=== PATIENT | female | born 1950 | race Caucasian/White ===

== ENCOUNTER 2017-04-26 14:03 | Inpatient (IN) | payer MEDICARE, OTHER ==
[~2017-04-26] VITALS: Ht 160 cm; Wt 58.7 kg
[~2017-04-26 14:03] MED LIST: AMLO5TAB2 PO; ARIP15TA36 PO; ASPI325T11 PO; ATOR20TA58 PO; BUSP10TA PO; CARB1TAB22 PO; CARI350T PO; CLON2TAB2 PO; HYDR-2679 PO; LEVO100T5 PO; POTA20TA4 PO; RALO60TA PO; ROPI0.5T PO; SERT100T8 PO; TRAZ-90 PO
--- NOTE | 2017-04-26 14:06 | PHYS DOC ---
Past History Past Medical History: COPD, CVA, Depression, High Cholesterol, Hypertension, TIA Past Surgical History: Other Alcohol Use: None Drug Use: None Adult General HPI HPI Patient is a 66-year-old female presenting to the emergency department for evaluation of fall from generalized weakness. Patient has had a stroke with resultant slurred speech and left-sided weakness. Patient is somewhat slow to get information from but it sounds as if she fell from weakness and was not able to get up and was lying on the ground for at least 5 hours and she was yelling and screaming and the neighbor found her and family came and they were unable to get her up so they called the ambulance. Patient denies any specific pain rather she says she just feels weak and tired. She thinks that she has been eating enough but is vague on her answers. She is slightly confused as she thinks the year is 1916 but later corrected herself. She is moving all extremities and has no obvious signs of trauma. Review of Systems Review of Systems Constitutional: Denies fever or chills [] Eyes: Denies change in visual acuity, redness, or eye pain [] HENT: Denies nasal congestion or sore throat [] Respiratory: Denies cough or shortness of breath [] Cardiovascular: No additional information not addressed in HPI [] GI: Denies abdominal pain, nausea, vomiting, bloody stools or diarrhea [] : Denies dysuria or hematuria [] Musculoskeletal: Denies back pain or joint pain [] Integument: Denies rash or skin lesions [] Neurologic: Denies headache, focal weakness or sensory changes [] Allergies Allergies Allergies Coded Allergies Type Severity Reaction Last Updated Verified Tetanus Vaccines and Toxoid Allergy Intermediate 12/12/16 Yes meperidine Allergy Intermediate 12/12/16 Yes iodine Allergy Mild 12/12/16 Yes latex Allergy Mild 12/12/16 Yes Physical Exam Physical Exam Constitutional: Well developed, well nourished, no acute distress, non-toxic appearance. [] HENT: Normocephalic, atraumatic, bilateral external ears normal, oropharynx moist, no oral exudates, nose normal. [] Eyes: PERRLA, EOMI, conjunctiva normal, no discharge. [] Neck: Normal range of motion, no tenderness, supple, no stridor. [] Cardiovascular:Heart rate regular rhythm, no murmur [] Lungs & Thorax: Bilateral breath sounds clear to auscultation [] Abdomen: Bowel sounds normal, soft, no tenderness, no masses, no pulsatile masses. [] Skin: Warm, dry, no erythema, no rash. [] Back: No tenderness, no CVA tenderness. [] Extremities: No tenderness, no cyanosis, no clubbing, ROM intact, no edema. [] Neurologic: Alert and oriented X 2, moves all extremities EKG EKG [] Radiology/Procedures Radiology/Procedures CT of the head without contrast, 04/26/2017: History: Altered mental status Comparison is made to a study from 12/12/2016. There is moderate cerebral atrophy particularly in the anterior temporal lobe on the right. The ventricles are mildly enlarged on a compensatory basis. There is no shift of the midline structures. There is no evidence of acute intracranial hemorrhage or mass effect. There are sclerotic changes in the left mastoid sinus with opacification of the left mastoid air cells, compatible with chronic mastoiditis. Similar findings were present on 12/12/2016. IMPRESSION: No acute intracranial abnormality is detected with no significant change since 12/12/2016. PQRS Compliance Statement: One or more of the following individualized dose reduction techniques were utilized for this examination: 1. Automated exposure control 2. Adjustment of the mA and/or kV according to patient size 3. Use of iterative reconstruction technique DICTATED AND SIGNED BY: DAVID WHITLOCK MD DATE: 04/26/17 145 Portable chest, 04/26/2017: History: Altered mental status Comparison is made to a study from 09/27/2016. The heart size and pulmonary vascularity are normal. Previously seen right lung infiltrates have cleared. There is currently no significant pulmonary infiltrate. No pleural fluid is evident. IMPRESSION: No acute cardiopulmonary abnormality is detected. DICTATED AND SIGNED BY: DAVID WHITLOCK MD DATE: 04/26/17 1443 Course & Med Decision Making Course & Med Decision Making Patient with generalized weakness and could not ambulate on her own. Says that she lives by herself. Family including brother is concerned about safety and patient admits herself that she does not feel well enough to go home. Patient will be admitted for further observation and treatment. Dragon Disclaimer Dragon Disclaimer This chart was dictated in whole or in part using Voice Recognition software in a busy, high-work load, and often noisy Emergency Department environment. It may contain unintended and wholly unrecognized errors or omissions. Departure Departure: Impression: Primary Impression: Generalized weakness Additional Impression: Frequent falls Disposition: 09 ADMITTED INPATIENT Admitting Physician: Waqar Hall Condition: STABLE Referrals: EWA GOULD APRN (PCP) Problem Qualifiers YUSUF CARMONA DO Apr 26, 2017 14:06
[2017-04-26 14:27] LABS: BASO # 0.1 x10^3/uL (0.0-0.2); BASO % 1 % (0-3); EOS # 0.1 x10^3/uL (0.0-0.7); EOS % 1 % (0-3); HEMATOCRIT 35.8 % (36.0-47.0); HEMOGLOBIN 11.9 g/dL (12.0-15.5); LYMPH # 3.5 x10^3/uL (1.0-4.8); LYMPH % 32 % (24-48); MEAN CORPUSCULAR HEMOGLOBIN 30 pg (25-35); MEAN CORPUSCULAR HGB CONC 33 g/dL (31-37); MEAN CORPUSCULAR VOLUME 91 fL (79-100); MONO # 0.8 x10^3/uL (0.0-1.1); MONO % 7 % (0-9); NEUT # 6.3 x10^3uL (1.8-7.7); NEUT % 59 % (31-73); PLATELET COUNT 216 x10^3/uL (140-400); RED BLOOD COUNT 3.94 x10^6/uL (3.50-5.40); RED CELL DISTRIBUTION WIDTH 15.2 % (11.5-14.5); WHITE BLOOD COUNT 10.7 x10^3/uL (4.0-11.0)
[2017-04-26] MEDS ORDERED: IV NORMAL SALINE 1,000ML 1,000 ML IV ONE (14:30)
[2017-04-26 14:43] LABS: ALBUMIN 3.5 g/dL (3.4-5.0); ALBUMIN/GLOBULIN RATIO 1.2 (1.0-1.7); CALCIUM 8.6 mg/dL (8.5-10.1); CREATININE 1.3 mg/dL (0.6-1.0); GFR 41.1; TOTAL BILIRUBIN 0.2 mg/dL (0.2-1.0); TOTAL PROTEIN 6.4 g/dL (6.4-8.2)
[2017-04-26 14:45] LABS: ACETAMIN 10.5 mcg/mL (10-30); ETHANOL < 10 mg/dL (0-10); SALIC 5.8 mg/dL (2.8-20.0)
--- NOTE | 2017-04-26 14:46 | RAD ---
Portable chest, 04/26/2017: History: Altered mental status Comparison is made to a study from 09/27/2016. The heart size and pulmonary vascularity are normal. Previously seen right lung infiltrates have cleared. There is currently no significant pulmonary infiltrate. No pleural fluid is evident. IMPRESSION: No acute cardiopulmonary abnormality is detected.
--- NOTE | 2017-04-26 14:58 | RAD ---
CT of the head without contrast, 04/26/2017: History: Altered mental status Comparison is made to a study from 12/12/2016. There is moderate cerebral atrophy particularly in the anterior temporal lobe on the right. The ventricles are mildly enlarged on a compensatory basis. There is no shift of the midline structures. There is no evidence of acute intracranial hemorrhage or mass effect. There are sclerotic changes in the left mastoid sinus with opacification of the left mastoid air cells, compatible with chronic mastoiditis. Similar findings were present on 12/12/2016. IMPRESSION: No acute intracranial abnormality is detected with no significant change since 12/12/2016. PQRS Compliance Statement: One or more of the following individualized dose reduction techniques were utilized for this examination: 1. Automated exposure control 2. Adjustment of the mA and/or kV according to patient size 3. Use of iterative reconstruction technique
[2017-04-26] MEDS ORDERED: ONDANSETRON PF 4 MG/2 ML VIAL. IV PRN (15:15)
--- NOTE | 2017-04-26 15:26 | EKG ---
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
[2017-04-26 16:10] LABS: BILIRUBIN,URINE NEG (NEG); CLARITY,URINE CLEAR; COLOR,URINE YELLOW; GLUCOSE,URINE NEG (NEG); NITRITE,URINE NEG (NEG); UROBILINOGEN,URINE 0.2 mg/dL (0.2 mg/dL)
[2017-04-26 16:11] LABS: BACTERIA,URINE FEW /HPF (0-FEW); RBC,URINE OCC /HPF (0-2); SQUAMOUS EPITHELIAL CELL,UR FEW /LPF; WBC,URINE OCC /HPF (0-4)
[2017-04-26 16:22] LABS: AMPHETAMINE/METHAMPHETAMINE NEG (NEG); BARBITURATES POS (NEG); BENZODIAZEPINES POS (NEG); CANNABINOIDS NEG (NEG); COCAINE NEG (NEG); METHADONE NEG (NEG); OPIATES POS (NEG); PHENCYCLIDINE NEG (NEG)
[2017-04-26 17:05] VITALS: BP 138/68
[2017-04-26] MEDS ORDERED: HYDROcodone/APAP 7.5/325MG 1 TAB TABLET PO PRN (17:45)
[2017-04-26] MEDS ORDERED: clonazePAM 2 MG TABLET PO PRN (17:45)
--- NOTE | 2017-04-26 17:59 | PDOC1 ---
History of Present Illness Reason for Visit: Generalized weakness and fall to the floor History of Present Illness Fell on the floor and was lying there for 5 hours Was yelling and her neighbour heard her and called her family who called the ambulance as they were unable to get her up Chief Complaint: MECHANICAL FALL Allergies: Coded Allergies: Tetanus Vaccines and Toxoid (Verified Allergy, Intermediate, 12/12/16) meperidine (Verified Allergy, Intermediate, 12/12/16) iodine (Verified Allergy, Mild, 12/12/16) latex (Verified Allergy, Mild, 12/12/16) Past Medical History Cardiac: No pertinent hx Pulmonary: COPD 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 See HPI for pertinent positives and negative responses, other at[place] all other systems are negative, non pertinent or non contributory Neurological: YES: Weakness, Other (left sided hemiplegia) Allergies: Coded Allergies: Tetanus Vaccines and Toxoid (Verified Allergy, Intermediate, 12/12/16) meperidine (Verified Allergy, Intermediate, 12/12/16) iodine (Verified Allergy, Mild, 12/12/16) latex (Verified Allergy, Mild, 12/12/16) Medications Current Medications Sodium Chloride 1,000 ml @ 1,000 mls/hr 1X ONCE IV Last administered on t 14:38; Start 04/26/17 at 14:30; Stop 04/26/17 at 15:29; Status DC Ondansetron HCl (Zofran) 4 mg PRN Q4HRS PRN IV NAUSEA/VOMITING; Start 04/26/17 at 15:15; Stop 04/27/17 at 15:14 Amlodipine Besylate (Norvasc) 10 mg DAILY PO ; Start 04/27/17 at 09:00; Status UNV Aripiprazole (Abilify) 15 mg AFTRNOON PO ; Start 04/27/17 at 13:00; Status UNV Aspirin (Aspirin Enteric Coated) 325 mg DAILYWBKFT PO ; Start 04/27/17 at 08:00; Status UNV Atorvastatin Calcium (Lipitor) 20 mg QHS PO ; Start 04/26/17 at 21:00; Status UNV Buspirone HCl (Buspar) 10 mg QHS PO ; Start 04/26/17 at 21:00; Status UNV Carbidopa/Levodopa (Sinemet 25/100) 1 tab TID PO ; Start 04/26/17 at 21:00; Status UNV Clonazepam (KlonoPIN) 2 mg TID PRN PO ANXIETY; Start 04/26/17 at 17:45; Status UNV Acetaminophen/ Hydrocodone Bitart (Lortab 7.5/325) 1 tab PRN Q6HRS PRN PO PAIN ; Start 04/26/17 at 17:45; Status UNV Levothyroxine Sodium (Synthroid) 100 mcg DAILY07 PO ; Start 04/27/17 at 07:00; Status UNV Potassium Chloride (Klor-Con) 40 meq BIDWMEALS PO ; Start 04/27/17 at 08:00; Status UNV Raloxifene HCl (Evista) 60 mg DAILY PO ; Start 04/27/17 at 09:00; Status UNV Sertraline HCl (Zoloft) 200 mg DAILY PO ; Start 04/27/17 at 09:00; Status UNV Trazodone HCl (Desyrel) 300 mg QHS PO ; Start 04/26/17 at 21:00; Status UNV Sodium Chloride 1,000 ml @ 100 mls/hr Q10H IV ; Start 04/26/17 at 17:45; Status UNV Active Scripts Active Aspirin Ec (Aspirin) 325 Mg Tablet.dr 325 Mg PO DAILYWBKFT Klor-Con M20 (Potassium Chloride) 20 Meq Tab.er.prt 40 Meq PO BIDWMEALS Amlodipine Besylate 5 Mg Tablet 10 Mg PO DAILY MAY USE A 10 MG TAB Reported Lortab 7.5-325 mg Tablet (Hydrocodone/Acetaminophen) 1 Each Tablet 1 PO PRN Q6HRS PRN LAST DOSE GIVEN: DATE: TIME: NEXT DOSE DUE: DATE: TODAY TIME: IF AND WHEN NEEDED Levothyroxine Sodium 100 Mcg Tablet 100 Mcg PO DAILY07 LAST DOSE GIVEN: DATE: TODAY TIME: BEFORE BREAKFAST NEXT DOSE DUE: DATE: TIME: BEFORE BREAKFAST Evista (Raloxifene Hcl) 60 Mg Tablet 60 Mg PO DAILY LAST DOSE GIVEN: DATE: TIME: AM NEXT DOSE DUE: DATE: TIME: AM Atorvastatin Calcium 20 Mg Tablet 20 Mg PO QHS LAST DOSE GIVEN: DATE: YES TIME: AT BEDTIME NEXT DOSE DUE: DATE: TIME: AT BEDTIME Sertraline Hcl 100 Mg Tablet 200 Mg PO DAILY LAST DOSE GIVEN: DATE: TIME: AM NEXT DOSE DUE: DATE: TIME: AM Carbidopa-Levodopa 25-100 Tab (Carbidopa/Levodopa) 1 Each Tablet 1 Tab PO TID LAST DOSE GIVEN: DATE: TIME: AM NEXT DOSE DUE: DATE: TIME: AFTERNOON Abilify (Aripiprazole) 15 Mg Tablet 15 Mg PO AFTRNOON LAST DOSE GIVEN: DATE: TIME: AFTERNOON NEXT DOSE DUE: DATE: TIME: AFTERNOON Buspirone Hcl 10 Mg Tablet 10 Mg PO QHS LAST DOSE GIVEN: DATE: TIME: AT BEDTIME NEXT DOSE DUE: DATE: TIME: AT BEDTIME Trazodone Hcl 100 Mg Tablet 3 Tab PO QHS LAST DOSE GIVEN: DATE: TIME: AT BEDTIME NEXT DOSE DUE: DATE: TIME: AT BEDTIME Clonazepam 2 Mg Tablet 1 Tab PO TID PRN LAST DOSE GIVEN: DATE: TIME: NEXT DOSE DUE: DATE: TIME: IF AND WHEN NEEDED Exam Vital Signs Vital Signs Date Time Temp Pulse Resp B/P (MAP) Pulse Ox O2 Delivery O2 Flow Rate FiO2 04/26/17 16:15 59 20 115/60 (78) 94 Room Air 04/26/17 14:03 98.0 General Appearance: Oriented X3, Cooperative, No acute distress, Other HEENT: Atraumatic, PERRLA, EOMI Respiratory: Clear to auscultation Heart: Regular rate, Normal S1, Normal S2 BREASTS: Normal Abdominal: Normal bowel sounds Extremities: No clubbing, No cyanosis, No edema Rectal Exam: Deferred, not indicated Skin: No rashes Neuro: Other (left sided hemiplegia) Psych/Mental Status: Mental status NL, Mood NL Assessment/Plan Assessment/Plan generlized weakness Left sided hemiplegia Parkinson disease Urinary retention plan iv fluids pt/ot neurology consult COURSE Allergies Coded Allergies Type Severity Reaction Last Updated Verified Tetanus Vaccines and Toxoid Allergy Intermediate 12/12/16 Yes meperidine Allergy Intermediate 12/12/16 Yes iodine Allergy Mild 12/12/16 Yes latex Allergy Mild 12/12/16 Yes Laboratory Tests Test 04/26/17 13:35 04/26/17 14:13 Urine Collection Type U cath Urine Color Yellow Urine Clarity Clear Urine pH 6.0 Urine Specific [place] 1.015 Urine Protein Neg (NEG-TRACE) Urine Glucose (UA) Neg mg/dL (NEG) Urine Ketones (Stick) Neg mg/dL (NEG) Urine Blood Trace (NEG) Urine Nitrite Neg (NEG) Urine Bilirubin Neg (NEG) Urine Urobilinogen Dipstick 0.2 mg/dL (0.2 mg/dL) Urine Leukocyte Esterase Neg (NEG) Urine RBC Occ /HPF (0-2) Urine WBC Occ /HPF (0-4) Urine Squamous Epithelial Cells Few /LPF Urine Bacteria Few /HPF (0-FEW) Urine Opiates Screen Pos (NEG) Urine Methadone Screen Neg (NEG) Urine Barbiturates Pos (NEG) Urine Phencyclidine Screen Neg (NEG) Urine Amphetamine/Methamphetamine Neg (NEG) Urine Benzodiazepines Screen Pos (NEG) Urine Cocaine Screen Neg (NEG) Urine Cannabinoids Screen Neg (NEG) Urine Ethyl Alcohol Neg (NEG) White Blood Count 10.7 x10^3/uL (4.0-11.0) Red Blood Count 3.94 x10^6/uL (3.50-5.40) Hemoglobin 11.9 g/dL (12.0-15.5) Hematocrit 35.8 % (36.0-47.0) Mean Corpuscular Volume 91 fL (79-100) Mean Corpuscular Hemoglobin 30 pg (25-35) Mean Corpuscular Hemoglobin Concent 33 g/dL (31-37) Red Cell Distribution Width 15.2 % (11.5-14.5) Platelet Count 216 x10^3/uL (140-400) Neutrophils (%) (Auto) 59 % (31-73) Lymphocytes (%) (Auto) 32 % (24-48) Monocytes (%) (Auto) 7 % (0-9) Eosinophils (%) (Auto) 1 % (0-3) Basophils (%) (Auto) 1 % (0-3) Neutrophils # (Auto) 6.3 x10^3uL (1.8-7.7) Lymphocytes # (Auto) 3.5 x10^3/uL (1.0-4.8) Monocytes # (Auto) 0.8 x10^3/uL (0.0-1.1) Eosinophils # (Auto) 0.1 x10^3/uL (0.0-0.7) Basophils # (Auto) 0.1 x10^3/uL (0.0-0.2) Prothrombin Time 10.0 SEC (9.4-11.4) Prothromb Time International Ratio 1.0 (0.9-1.1) Activated Partial Thromboplast Time 25 SEC (23-33) Sodium Level 135 mmol/L (136-145) Potassium Level 5.0 mmol/L (3.5-5.1) Chloride Level 101 mmol/L (98-107) Carbon Dioxide Level 27 mmol/L (21-32) Anion Gap 7 (6-14) Blood Urea Nitrogen 14 mg/dL (7-20) Creatinine 1.3 mg/dL (0.6-1.0) Estimated GFR (Cockcroft-Gault) 41.1 BUN/Creatinine Ratio 11 (6-20) Glucose Level 86 mg/dL (70-99) Calcium Level 8.6 mg/dL (8.5-10.1) Magnesium Level 1.9 mg/dL (1.8-2.4) Total Bilirubin 0.2 mg/dL (0.2-1.0) Aspartate Amino Transf (AST/SGOT) 16 U/L (15-37) Alanine Aminotransferase (ALT/SGPT) 15 U/L (14-59) Alkaline Phosphatase 78 U/L (46-116) Creatine Kinase 151 U/L (26-192) Troponin I Quantitative < 0.017 ng/mL (0-0.055) Total Protein 6.4 g/dL (6.4-8.2) Albumin 3.5 g/dL (3.4-5.0) Albumin/Globulin Ratio 1.2 (1.0-1.7) Salicylates Level 5.8 mg/dL (2.8-20.0) Salicylate Last Dose Date Unk Salicylate Last Dose Time Unk Acetaminophen Level 10.5 mcg/mL (10-30) Acetaminophen Last Dose Date Unk Acetaminophen Last Dose Time Unk Ethyl Alcohol Level < 10 mg/dL (0-10) Current Medications Medications (Trade) Dose Ordered Sig/Fede Route PRN Reason Start Time Stop Time Status Last Admin Dose Admin Sodium Chloride 1,000 ml @ 1,000 mls/hr 1X ONCE IV 04/26/17 14:30 04/26/17 15:29 DC 04/26/17 14:38 Ondansetron HCl (Zofran) 4 mg PRN Q4HRS PRN IV NAUSEA/VOMITING 04/26/17 15:15 04/27/17 15:14 Amlodipine Besylate (Norvasc) 10 mg DAILY PO 04/27/17 09:00 UNV Aripiprazole (Abilify) 15 mg AFTRNOON PO 04/27/17 13:00 UNV Aspirin (Aspirin Enteric Coated) 325 mg DAILYWBKFT PO 04/27/17 08:00 UNV Atorvastatin Calcium (Lipitor) 20 mg QHS PO 04/26/17 21:00 UNV Buspirone HCl (Buspar) 10 mg QHS PO 04/26/17 21:00 UNV Carbidopa/Levodopa (Sinemet 25/100) 1 tab TID PO 04/26/17 21:00 UNV Clonazepam (KlonoPIN) 2 mg TID PRN PO ANXIETY 04/26/17 17:45 UNV Acetaminophen/ Hydrocodone Bitart (Lortab 7.5/325) 1 tab PRN Q6HRS PRN PO PAIN 04/26/17 17:45 UNV Levothyroxine Sodium (Synthroid) 100 mcg DAILY07 PO 04/27/17 07:00 UNV Potassium Chloride (Klor-Con) 40 meq BIDWMEALS PO 04/27/17 08:00 UNV Raloxifene HCl (Evista) 60 mg DAILY PO 04/27/17 09:00 UNV Sertraline HCl (Zoloft) 200 mg DAILY PO 04/27/17 09:00 UNV Trazodone HCl (Desyrel) 300 mg QHS PO 04/26/17 21:00 UNV Sodium Chloride 1,000 ml @ 100 mls/hr Q10H IV 04/26/17 17:45 UNV Orders Procedure Category Date Status Time Cbc W Autodiff LAB 04/26/17 Complete 14:06 Comprehensive LAB 04/26/17 Complete Metabolic Panel 14:06 Drugs Of Abuse Ur LAB 04/26/17 Complete 14:06 Ethanol LAB 04/26/17 Complete 14:06 Partial LAB 04/26/17 Complete Thromboplastin Time 14:06 Salicylate LAB 04/26/17 Complete 14:06 Acetaminophen LAB 04/26/17 Complete 14:06 Troponin I LAB 04/26/17 Complete 14:06 Ua, Cult If Indicated LAB 04/26/17 Complete 14:06 Protime LAB 04/26/17 Complete 14:06 Thyroid Stim Hormone LAB 04/26/17 In Process (Tsh) 14:06 Creatine Kinase LAB 04/26/17 Complete 14:06 Iv Normal Saline PHA 04/26/17 Complete 1,000ml (Iv Sodium 14:30 Ct Head Wo Contrast CT 04/26/17 Resulted 14:06 Portable Chest 1v RAD 04/26/17 Resulted 14:06 12 Lead Ekg EKG 04/26/17 Complete 14:06 Magnesium LAB 04/26/17 Complete 14:13 [place] Order ADT 04/26/17 Transmitted 15:15 Code Status CODE 04/26/17 Transmitted 15:15 Vital Signs, Per NICO 04/26/17 In Process Protocol 15:15 Regular DIET 04/26/17 Transmitted Breakfast Ambulate With NICO 04/26/17 In Process Assistance 15:15 Ondansetron Pf PHA 04/26/17 In Process (Zofran) 15:15 Straight Cath Prn NICO 04/26/17 In Process 15:39 Amlodipine Besylate PHA 04/27/17 Logged (Norvasc) 09:00 Aripiprazole (Abilify) PHA 04/27/17 Logged 13:00 Aspirin Enteric PHA 04/27/17 Logged Coated (Aspirin 08:00 Atorvastatin Calcium PHA 04/26/17 Logged (Lipitor) 21:00 Buspirone (Buspar) PHA 04/26/17 Logged 21:00 Carbidopa/Levodopa PHA 04/26/17 Logged 25/100mg (Sinemet 25/ 21:00 Clonazepam (Klonopin) PHA 04/26/17 Logged 17:45 Hydrocodone/Apap PHA 04/26/17 Logged 7.5/325mg (Lortab 17:45 Levothyroxine PHA 04/27/17 Logged (Synthroid) 07:00 Potassium Chloride PHA 04/27/17 Logged (Klor-Con) 08:00 Raloxifene (Evista) PHA 04/27/17 Logged 09:00 Sertraline (Zoloft) PHA 04/27/17 Logged 09:00 Trazodone (Desyrel) PHA 04/26/17 Logged 21:00 Iv Normal Saline PHA 04/26/17 Logged 1,000ml (Iv Sodium 17:45 Hemogram LAB 04/27/17 Verified 05:00 Comprehensive LAB 04/27/17 Verified Metabolic Panel 05:00 Creatine Kinase LAB 04/27/17 Verified 05:00 Pt Eval And Treat PT 04/26/17 Logged 17:46 Ot Eval And Treat OT 04/26/17 Logged 17:46 Consult Physician By CONS 04/26/17 Transmitted Name 17:46 Vital Signs Date Time Temp Pulse Resp B/P (MAP) Pulse Ox O2 Delivery O2 Flow Rate FiO2 04/26/17 16:15 59 20 115/60 (78) 94 Room Air 04/26/17 14:03 98.0 DUKE CHRISTINE MD Apr 26, 2017 17:59
[2017-04-26] MEDS: IV NORMAL SALINE 1,000ML 1,000 ML IV SCH ×2 (18:07→21:33)
[2017-04-26] MEDS ORDERED: NICOTINE POLACRILEX GUM 2 MG GUM. BC PRN (18:30)
[2017-04-26 20:08] VITALS: BP 111/69
[2017-04-26] MEDS ORDERED: busPIRone 10 MG TABLET. PO SCH (21:00)
[2017-04-26] MEDS ORDERED: traZODone 100 MG TABLET. PO SCH (21:00)
[2017-04-26] MEDS ORDERED: ATORVASTATIN CALCIUM 20 MG TABLET PO SCH (21:00)
[2017-04-26] MEDS: CARBIDOPA/LEVODOPA 25/100MG TABLET PO SCH (21:33)
[2017-04-27 06:03] VITALS: BP 148/76
[2017-04-27 06:18] LABS: HEMATOCRIT 35.7 % (36.0-47.0); HEMOGLOBIN 11.9 g/dL (12.0-15.5); RED BLOOD COUNT 3.93 x10^6/uL (3.50-5.40); RED CELL DISTRIBUTION WIDTH 14.8 % (11.5-14.5); WHITE BLOOD COUNT 9.2 x10^3/uL (4.0-11.0)
[2017-04-27 06:31] LABS: CALCIUM 8.3 mg/dL (8.5-10.1); GFR 55.6; POTASSIUM 4.2 mmol/L (3.5-5.1); TOTAL BILIRUBIN 0.3 mg/dL (0.2-1.0)
[2017-04-27] MEDS ORDERED: LEVOTHYROXINE 100 MCG TABLET PO SCH (07:00)
--- NOTE | 2017-04-27 07:45 | PDOC2 ---
NEUROLOGY CONSULT Date of Admission DATE: 04/26/17 TIME: 05:14 Reason for Consult: Problems Medical Problems: (1) Frequent falls Status: Acute (2) Generalized weakness Status: Acute Referring Physician: Malini Chief Complaint s/p a fall and genera weakness. Reason for Visit: the patient had a fall at home unable to get up until she got help CENTRAL NERVOUS SYSTEM: CVA, TIA Psych: Anxiety, Depression Musculoskeletal: low back pain Rheumatologic: Other (osteoarthritis and oteoporosis,kyphosis) Past Surgical History: No pertinent history Current Medications Current Medications Sodium Chloride 1,000 ml @ 1,000 mls/hr 1X ONCE IV Last administered on 14:38; Start 04/26/17 at 14:30; Stop 04/26/17 at 15:29; Status DC Ondansetron HCl (Zofran) 4 mg PRN Q4HRS PRN IV NAUSEA/VOMITING; Start 04/26/17 at 15:15; Stop 04/27/17 at 15:14 Amlodipine Besylate (Norvasc) 10 mg DAILY PO ; Start 04/27/17 at 09:00 Aripiprazole (Abilify) 15 mg AFTRNOON PO ; Start 04/27/17 at 13:00 Aspirin (Aspirin Enteric Coated) 325 mg DAILYWBKFT PO ; Start 04/27/17 at 08:00 Atorvastatin Calcium (Lipitor) 20 mg QHS PO Last administered on 04/26/17 21:34 ; Start 04/26/17 at 21:00 Buspirone HCl (Buspar) 10 mg QHS PO Last administered on 04/26/17 21:34; Start 04/26/17 at 21:00 Carbidopa/Levodopa (Sinemet 25/100) 1 tab TID PO Last administered on 04/26/17 21:33; Start 04/26/17 at 21:00 Clonazepam (KlonoPIN) 2 mg PRN TID PRN PO ANXIETY; Start 04/26/17 at 17:45 Acetaminophen/ Hydrocodone Bitart (Lortab 7.5/325) 1 tab PRN Q6HRS PRN PO PAIN ; Start 04/26/17 at 17:45 Levothyroxine Sodium (Synthroid) 100 mcg DAILY07 PO Last administered on 06:26; Start 04/27/17 at 07:00 Potassium Chloride (Klor-Con) 40 meq BIDWMEALS PO ; Start 04/27/17 at 08:00 Raloxifene HCl (Evista) 60 mg DAILY PO ; Start 04/27/17 at 09:00 Sertraline HCl (Zoloft) 200 mg DAILY PO ; Start 04/27/17 at 09:00 Trazodone HCl (Desyrel) 300 mg QHS PO Last administered on 04/26/17 21:34; Start 04/26/17 at 21:00 Sodium Chloride 1,000 ml @ 100 mls/hr Q10H IV Last administered on 04/26/17 21 :33; Start 04/26/17 at 18:00 Nicotine Polacrilex (Nicorette Gum) 2 mg PRN Q1HR PRN BC SMOKING CESSATION; Start 04/26/17 at 18:30 Active Scripts Active Aspirin Ec (Aspirin) 325 Mg Tablet.dr 325 Mg PO DAILYWBKFT Klor-Con M20 (Potassium Chloride) 20 Meq Tab.er.prt 40 Meq PO BIDWMEALS Amlodipine Besylate 5 Mg Tablet 10 Mg PO DAILY MAY USE A 10 MG TAB Reported Lortab 7.5-325 mg Tablet (Hydrocodone/Acetaminophen) 1 Each Tablet 1 PO PRN Q6HRS PRN LAST DOSE GIVEN: DATE: TIME: NEXT DOSE DUE: DATE: TODAY TIME: IF AND WHEN NEEDED Levothyroxine Sodium 100 Mcg Tablet 100 Mcg PO DAILY07 LAST DOSE GIVEN: DATE: TODAY TIME: BEFORE BREAKFAST NEXT DOSE DUE: DATE: TOMORROW TIME: BEFORE BREAKFAST Evista (Raloxifene Hcl) 60 Mg Tablet 60 Mg PO DAILY LAST DOSE GIVEN: DATE: TODAY TIME: AM NEXT DOSE DUE: DATE: TOMORROW TIME: AM Atorvastatin Calcium 20 Mg Tablet 20 Mg PO QHS LAST DOSE GIVEN: DATE: YESTERDAY TIME: AT BEDTIME NEXT DOSE DUE: DATE: TODAY TIME: AT BEDTIME Sertraline Hcl 100 Mg Tablet 200 Mg PO DAILY LAST DOSE GIVEN: DATE: TODAY TIME: AM NEXT DOSE DUE: DATE: TOMORROW TIME: AM Carbidopa-Levodopa 25-100 Tab (Carbidopa/Levodopa) 1 Each Tablet 1 Tab PO TID LAST DOSE GIVEN: DATE: TODAY TIME: AM NEXT DOSE DUE: DATE: TODAY TIME: AFTERNOON Abilify (Aripiprazole) 15 Mg Tablet 15 Mg PO AFTRNOON LAST DOSE GIVEN: DATE: YESTERDAY TIME: AFTERNOON NEXT DOSE DUE: DATE: TODAY TIME: AFTERNOON Buspirone Hcl 10 Mg Tablet 10 Mg PO QHS LAST DOSE GIVEN: DATE: YESTERDAY TIME: AT BEDTIME NEXT DOSE DUE: DATE: TODAY TIME: AT BEDTIME Trazodone Hcl 100 Mg Tablet 3 Tab PO QHS LAST DOSE GIVEN: DATE: YESTERDAY TIME: AT BEDTIME NEXT DOSE DUE: DATE: TODAY TIME: AT BEDTIME Clonazepam 2 Mg Tablet 1 Tab PO TID PRN LAST DOSE GIVEN: DATE: TIME: NEXT DOSE DUE: DATE: TODAY TIME: IF AND WHEN NEEDED Allergies: Coded Allergies: Tetanus Vaccines and Toxoid (Verified Allergy, Intermediate, 12/12/16) meperidine (Verified Allergy, Intermediate, 12/12/16) iodine (Verified Allergy, Mild, 12/12/16) latex (Verified Allergy, Mild, 12/12/16) Review of System 10- point ros asmentioned above Review of System 10-point ros as mentioned above Physical Examination Physical Examination: General: Well-developed, well-nourished, white male, HEENT: normocephalic, atraumatic, otherwise unremarkable. Neck: supple, negative for JVD, carotid bruit, lymphoadenopathy or thyroidomegaly. Lungs: clear. Cardiovascular: normal S1, S2 without murmur. Abdomen: soft, no tenderness, mass or organomegaly. Extremities : no edema, clubbing or cyanosis. The peripheral pulses were normal. Neurological Examination: 1. Mental status: alert and oriented to time x3. The speech was fluent. There were no language dysfunctions. Memory: the patient recalls 3-3 objects after 1 and 3 minutes. Judgment and abstracting thinking were intact. Mood not depressed at this time. The patient denies hallucination, delusion or suicidal ideation. 2. Cranial Nerves: Visual patel were full. The pupils were equal and reactive to light and accommodation. The extra ocular movements were intact; there was no nystagmus on horizontal or vertical gazes. Funduscopic exam revealed no retinal bleeding or papilledma. There were no facial, motor or sensory deficits. The hearing was intact. The palate was elevated symmetrically. The sternocleidomastoids were powerful bilaterally. The patient protruded the tongue in the midline without fasciculations or atrophy. 3. Motor Examination: No focal muscle bulk wasting. The strength was 4/5 throughout the left upper and lower extremities. 4. Sensory Examination: Normal pinprick, light touch, vibratory, and position senses. 5. Deep Tendon Reflexes: Were symmetric and hypoactive without pathologic responses. 6. Coordinations and Gait: nto tested VITALS Vital Signs Date Time Temp Pulse Resp B/P (MAP) Pulse Ox O2 Delivery O2 Flow Rate FiO2 04/27/17 06:03 97.6 61 20 148/76 (100) 91 Room Air Labs Laboratory Tests Test 04/26/17 13:35 04/26/17 14:13 04/27/17 05:56 Urine Collection Type U cath Urine Color Yellow Urine Clarity Clear Urine pH 6.0 Urine Specific [place] 1.015 Urine Protein Neg (NEG-TRACE) Urine Glucose (UA) Neg mg/dL (NEG) Urine Ketones (Stick) Neg mg/dL (NEG) Urine Blood Trace (NEG) Urine Nitrite Neg (NEG) Urine Bilirubin Neg (NEG) Urine Urobilinogen Dipstick 0.2 mg/dL (0.2 mg/dL) Urine Leukocyte Esterase Neg (NEG) Urine RBC Occ /HPF (0-2) Urine WBC Occ /HPF (0-4) Urine Squamous Epithelial Cells Few /LPF Urine Bacteria Few /HPF (0-FEW) Urine Opiates Screen Pos (NEG) Urine Methadone Screen Neg (NEG) Urine Barbiturates Pos (NEG) Urine Phencyclidine Screen Neg (NEG) Urine Amphetamine/Methamphetamine Neg (NEG) Urine Benzodiazepines Screen Pos (NEG) Urine Cocaine Screen Neg (NEG) Urine Cannabinoids Screen Neg (NEG) Urine Ethyl Alcohol Neg (NEG) White Blood Count 10.7 x10^3/uL (4.0-11.0) 9.2 x10^3/uL (4.0-11.0) Red Blood Count 3.94 x10^6/uL (3.50-5.40) 3.93 x10^6/uL (3.50-5.40) Hemoglobin 11.9 g/dL (12.0-15.5) 11.9 g/dL (12.0-15.5) Hematocrit 35.8 % (36.0-47.0) 35.7 % (36.0-47.0) Mean Corpuscular Volume 91 fL (79-100) 91 fL (79-100) Mean Corpuscular Hemoglobin 30 pg (25-35) 30 pg (25-35) Mean Corpuscular Hemoglobin Concent 33 g/dL (31-37) 33 g/dL (31-37) Red Cell Distribution Width 15.2 % (11.5-14.5) 14.8 % (11.5-14.5) Platelet Count 216 x10^3/uL (140-400) 211 x10^3/uL (140-400) Neutrophils (%) (Auto) 59 % (31-73) Lymphocytes (%) (Auto) 32 % (24-48) Monocytes (%) (Auto) 7 % (0-9) Eosinophils (%) (Auto) 1 % (0-3) Basophils (%) (Auto) 1 % (0-3) Neutrophils # (Auto) 6.3 x10^3uL (1.8-7.7) Lymphocytes # (Auto) 3.5 x10^3/uL (1.0-4.8) Monocytes # (Auto) 0.8 x10^3/uL (0.0-1.1) Eosinophils # (Auto) 0.1 x10^3/uL (0.0-0.7) Basophils # (Auto) 0.1 x10^3/uL (0.0-0.2) Prothrombin Time 10.0 SEC (9.4-11.4) Prothromb Time International Ratio 1.0 (0.9-1.1) Activated Partial Thromboplast Time 25 SEC (23-33) Sodium Level 135 mmol/L (136-145) 137 mmol/L (136-145) Potassium Level 5.0 mmol/L (3.5-5.1) 4.2 mmol/L (3.5-5.1) Chloride Level 101 mmol/L (98-107) 104 mmol/L (98-107) Carbon Dioxide Level 27 mmol/L (21-32) 25 mmol/L (21-32) Anion Gap 7 (6-14) 8 (6-14) Blood Urea Nitrogen 14 mg/dL (7-20) 10 mg/dL (7-20) Creatinine 1.3 mg/dL (0.6-1.0) 1.0 mg/dL (0.6-1.0) Estimated GFR (Cockcroft-Gault) 41.1 55.6 BUN/Creatinine Ratio 11 (6-20) 10 (6-20) Glucose Level 86 mg/dL (70-99) 77 mg/dL (70-99) Calcium Level 8.6 mg/dL (8.5-10.1) 8.3 mg/dL (8.5-10.1) Magnesium Level 1.9 mg/dL (1.8-2.4) Total Bilirubin 0.2 mg/dL (0.2-1.0) 0.3 mg/dL (0.2-1.0) Aspartate Amino Transf (AST/SGOT) 16 U/L (15-37) 16 U/L (15-37) Alanine Aminotransferase (ALT/SGPT) 15 U/L (14-59) 7 U/L (14-59) Alkaline Phosphatase 78 U/L (46-116) 70 U/L (46-116) Creatine Kinase 151 U/L (26-192) 196 U/L (26-192) Troponin I Quantitative < 0.017 ng/mL (0-0.055) Total Protein 6.4 g/dL (6.4-8.2) 6.0 g/dL (6.4-8.2) Albumin 3.5 g/dL (3.4-5.0) 3.0 g/dL (3.4-5.0) Albumin/Globulin Ratio 1.2 (1.0-1.7) 1.0 (1.0-1.7) Salicylates Level 5.8 mg/dL (2.8-20.0) Salicylate Last Dose Date Unk Salicylate Last Dose Time Unk Acetaminophen Level 10.5 mcg/mL (10-30) Acetaminophen Last Dose Date Unk Acetaminophen Last Dose Time Unk Ethyl Alcohol Level < 10 mg/dL (0-10) Images CT of the head without contrast, 04/26/2017: History: Altered mental status Comparison is made to a study from 12/12/2016. There is moderate cerebral atrophy particularly in the anterior temporal lobe on the right. The ventricles are mildly enlarged on a compensatory basis. There is no shift of the midline structures. There is no evidence of acute intracranial hemorrhage or mass effect. There are sclerotic changes in the left mastoid sinus with opacification of the left mastoid air cells, compatible with chronic mastoiditis. Similar findings were present on 12/12/2016.Portable chest, 04/26/2017: History: Altered mental status Comparison is made to a study from 09/27/2016. The heart size and pulmonary vascularity are normal. Previously seen right lung infiltrates have cleared. There is currently no significant pulmonary infiltrate. No pleural fluid is evident. IMPRESSION: No acute cardiopulmonary abnormality is detected. IMPRESSION: No acute intracranial abnormality is detected with no significant change since 12/12/2016. Assessment/Plan 1 s/p a fall and general weakness 2-history of stroke with mild left sided weakness 3-COPD,Arthritis plan: 1- continue with current care initiated by . 2- PT/OT Julian LARIOS MD Apr 27, 2017 07:45
[2017-04-27] MEDS ORDERED: ASPIRIN ENTERIC COATED 325 MG TABLET.DR. PO SCH (08:00)
[2017-04-27] MEDS: CARBIDOPA/LEVODOPA 25/100MG TABLET PO SCH ×2 (09:00→12:53)
[2017-04-27] MEDS ORDERED: SERTRALINE 100 MG TABLET. PO SCH (09:00)
[2017-04-27] MEDS ORDERED: RALOXIFENE 60 MG TABLET. PO SCH (09:00)
[2017-04-27] MEDS ORDERED: amLODIPine BESYLATE 10 MG TABLET PO SCH (09:00)
[2017-04-27] MEDS: POTASSIUM CHLORIDE 20 MEQ TABLET.ER. PO SCH ×2 (09:17→16:47)
--- NOTE | 2017-04-27 09:46 | PDOC ---
SUBJECTIVE: the patient feels better today she denies any new medical or neurological c/o she walks with pt and use a walker. no recurrent fall her tremor has been better she doesn't take carbidopa/levodopa currently she is on primidone. OBJECTIVE: Vital Signs: Vital Signs Date Time Temp Pulse Resp B/P (MAP) Pulse Ox O2 Delivery O2 Flow Rate FiO2 04/27/17 09:17 61 148/76 04/27/17 06:03 97.6 20 91 Room Air I & O Intake and Output 04/27/17 07:00 Intake Total 2646 ml Output Total 2125 ml Balance 521 ml Intake Oral 1700 ml IV Total 946 ml Output Urine Total 2125 ml Labs: Laboratory Tests Test 04/26/17 13:35 04/26/17 14:13 04/27/17 05:56 Urine Collection Type U cath Urine Color Yellow Urine Clarity Clear Urine pH 6.0 Urine Specific [place] 1.015 Urine Protein Neg (NEG-TRACE) Urine Glucose (UA) Neg mg/dL (NEG) Urine Ketones (Stick) Neg mg/dL (NEG) Urine Blood Trace (NEG) Urine Nitrite Neg (NEG) Urine Bilirubin Neg (NEG) Urine Urobilinogen Dipstick 0.2 mg/dL (0.2 mg/dL) Urine Leukocyte Esterase Neg (NEG) Urine RBC Occ /HPF (0-2) Urine WBC Occ /HPF (0-4) Urine Squamous Epithelial Cells Few /LPF Urine Bacteria Few /HPF (0-FEW) Urine Opiates Screen Pos (NEG) Urine Methadone Screen Neg (NEG) Urine Barbiturates Pos (NEG) Urine Phencyclidine Screen Neg (NEG) Urine Amphetamine/Methamphetamine Neg (NEG) Urine Benzodiazepines Screen Pos (NEG) Urine Cocaine Screen Neg (NEG) Urine Cannabinoids Screen Neg (NEG) Urine Ethyl Alcohol Neg (NEG) White Blood Count 10.7 x10^3/uL (4.0-11.0) 9.2 x10^3/uL (4.0-11.0) Red Blood Count 3.94 x10^6/uL (3.50-5.40) 3.93 x10^6/uL (3.50-5.40) Hemoglobin 11.9 g/dL (12.0-15.5) 11.9 g/dL (12.0-15.5) Hematocrit 35.8 % (36.0-47.0) 35.7 % (36.0-47.0) Mean Corpuscular Volume 91 fL (79-100) 91 fL (79-100) Mean Corpuscular Hemoglobin 30 pg (25-35) 30 pg (25-35) Mean Corpuscular Hemoglobin Concent 33 g/dL (31-37) 33 g/dL (31-37) Red Cell Distribution Width 15.2 % (11.5-14.5) 14.8 % (11.5-14.5) Platelet Count 216 x10^3/uL (140-400) 211 x10^3/uL (140-400) Neutrophils (%) (Auto) 59 % (31-73) Lymphocytes (%) (Auto) 32 % (24-48) Monocytes (%) (Auto) 7 % (0-9) Eosinophils (%) (Auto) 1 % (0-3) Basophils (%) (Auto) 1 % (0-3) Neutrophils # (Auto) 6.3 x10^3uL (1.8-7.7) Lymphocytes # (Auto) 3.5 x10^3/uL (1.0-4.8) Monocytes # (Auto) 0.8 x10^3/uL (0.0-1.1) Eosinophils # (Auto) 0.1 x10^3/uL (0.0-0.7) Basophils # (Auto) 0.1 x10^3/uL (0.0-0.2) Prothrombin Time 10.0 SEC (9.4-11.4) Prothromb Time International Ratio 1.0 (0.9-1.1) Activated Partial Thromboplast Time 25 SEC (23-33) Sodium Level 135 mmol/L (136-145) 137 mmol/L (136-145) Potassium Level 5.0 mmol/L (3.5-5.1) 4.2 mmol/L (3.5-5.1) Chloride Level 101 mmol/L (98-107) 104 mmol/L (98-107) Carbon Dioxide Level 27 mmol/L (21-32) 25 mmol/L (21-32) Anion Gap 7 (6-14) 8 (6-14) Blood Urea Nitrogen 14 mg/dL (7-20) 10 mg/dL (7-20) Creatinine 1.3 mg/dL (0.6-1.0) 1.0 mg/dL (0.6-1.0) Estimated GFR (Cockcroft-Gault) 41.1 55.6 BUN/Creatinine Ratio 11 (6-20) 10 (6-20) Glucose Level 86 mg/dL (70-99) 77 mg/dL (70-99) Calcium Level 8.6 mg/dL (8.5-10.1) 8.3 mg/dL (8.5-10.1) Magnesium Level 1.9 mg/dL (1.8-2.4) Total Bilirubin 0.2 mg/dL (0.2-1.0) 0.3 mg/dL (0.2-1.0) Aspartate Amino Transf (AST/SGOT) 16 U/L (15-37) 16 U/L (15-37) Alanine Aminotransferase (ALT/SGPT) 15 U/L (14-59) 7 U/L (14-59) Alkaline Phosphatase 78 U/L (46-116) 70 U/L (46-116) Creatine Kinase 151 U/L (26-192) 196 U/L (26-192) Troponin I Quantitative < 0.017 ng/mL (0-0.055) Total Protein 6.4 g/dL (6.4-8.2) 6.0 g/dL (6.4-8.2) Albumin 3.5 g/dL (3.4-5.0) 3.0 g/dL (3.4-5.0) Albumin/Globulin Ratio 1.2 (1.0-1.7) 1.0 (1.0-1.7) Salicylates Level 5.8 mg/dL (2.8-20.0) Salicylate Last Dose Date Unk Salicylate Last Dose Time Unk Acetaminophen Level 10.5 mcg/mL (10-30) Acetaminophen Last Dose Date Unk Acetaminophen Last Dose Time Unk Ethyl Alcohol Level < 10 mg/dL (0-10) Physical Exam: General: Well-developed, well-nourished, white male, HEENT: normocephalic, atraumatic, otherwise unremarkable. Neck: supple, negative for JVD, carotid bruit, lymphoadenopathy or thyroidomegaly. Lungs: clear. Cardiovascular: normal S1, S2 without murmur. Abdomen: soft, no tenderness, mass or organomegaly. Extremities : no edema, clubbing or cyanosis. The peripheral pulses were normal. Neurological Examination: 1. Mental status: alert and oriented to time x3. The speech was fluent. There were no language dysfunctions. Memory: the patient recalls 3-3 objects after 1 and 3 minutes. Judgment and abstracting thinking were intact. Mood not depressed at this time. The patient denies hallucination, delusion or suicidal ideation. 2. Cranial Nerves: Visual patel were full. The pupils were equal and reactive to light and accommodation. The extra ocular movements were intact; there was no nystagmus on horizontal or vertical gazes. Funduscopic exam revealed no retinal bleeding or papilledma. There were no facial, motor or sensory deficits. The hearing was intact. The palate was elevated symmetrically. The sternocleidomastoids were powerful bilaterally. The patient protruded the tongue in the midline without fasciculations or atrophy. 3. Motor Examination: No focal muscle bulk wasting. The strength was 4/5 throughout the left upper and lower extremities. 4. Sensory Examination: Normal pinprick, light touch, vibratory, and position senses. 5. Deep Tendon Reflexes: Were symmetric and hypoactive without pathologic responses. 6. Coordinations and Gait: nto tested ASSESSMENT: 1- s/p a fall of unknown etiology 2- history of tremor improved on primidone 3- history of parkinson's disease 4-COPD, Arthritis low back pain PLAN: continue with current care and physical therapy as needed. Julian LARIOS MD Apr 27, 2017 09:46
[2017-04-27 10:28] VITALS: BP 162/78
[2017-04-27] MEDS ORDERED: PRIM50TA PO (12:47)
[2017-04-27] MEDS ORDERED: ARIPiprazole 15 MG TABLET PO SCH (13:00)
[2017-04-27] MEDS: IV NORMAL SALINE 1,000ML 1,000 ML IV SCH (13:35)
[2017-04-27 14:36] VITALS: BP 161/74
--- NOTE | 2017-04-27 16:26 | PDOC3 ---
Discharge Summary Visit Information Date of Admission: Apr 27, 2017 Date of Discharge: Apr 28, 2017 Admitting Diagnosis Comments Generalised weakness Recurrent falls Dehydration Final Diagnosis Problems Medical Problems: (1) Frequent falls Status: Acute (2) Generalized weakness Status: Acute Problems: Brief Hospital Course Allergies Allergies Coded Allergies Type Severity Reaction Last Updated Verified Tetanus Vaccines and Toxoid Allergy Intermediate 12/12/16 Yes iodine Allergy Intermediate 04/27/17 Yes latex Allergy Intermediate 04/27/17 Yes meperidine Allergy Intermediate 12/12/16 Yes Vital Signs Vital Signs Date Time Temp Pulse Resp B/P (MAP) Pulse Ox O2 Delivery O2 Flow Rate FiO2 04/27/17 14:36 98.5 59 20 161/74 (103) 96 Room Air Lab Results Laboratory Tests Test 04/26/17 13:35 04/26/17 14:13 04/27/17 05:56 Urine Collection Type U cath Urine Color Yellow Urine Clarity Clear Urine pH 6.0 Urine Specific [place] 1.015 Urine Protein Neg (NEG-TRACE) Urine Glucose (UA) Neg mg/dL (NEG) Urine Ketones (Stick) Neg mg/dL (NEG) Urine Blood Trace (NEG) Urine Nitrite Neg (NEG) Urine Bilirubin Neg (NEG) Urine Urobilinogen Dipstick 0.2 mg/dL (0.2 mg/dL) Urine Leukocyte Esterase Neg (NEG) Urine RBC Occ /HPF (0-2) Urine WBC Occ /HPF (0-4) Urine Squamous Epithelial Cells Few /LPF Urine Bacteria Few /HPF (0-FEW) Urine Opiates Screen Pos (NEG) Urine Methadone Screen Neg (NEG) Urine Barbiturates Pos (NEG) Urine Phencyclidine Screen Neg (NEG) Urine Amphetamine/Methamphetamine Neg (NEG) Urine Benzodiazepines Screen Pos (NEG) Urine Cocaine Screen Neg (NEG) Urine Cannabinoids Screen Neg (NEG) Urine Ethyl Alcohol Neg (NEG) White Blood Count 10.7 x10^3/uL (4.0-11.0) 9.2 x10^3/uL (4.0-11.0) Red Blood Count 3.94 x10^6/uL (3.50-5.40) 3.93 x10^6/uL (3.50-5.40) Hemoglobin 11.9 g/dL (12.0-15.5) 11.9 g/dL (12.0-15.5) Hematocrit 35.8 % (36.0-47.0) 35.7 % (36.0-47.0) Mean Corpuscular Volume 91 fL (79-100) 91 fL (79-100) Mean Corpuscular Hemoglobin 30 pg (25-35) 30 pg (25-35) Mean Corpuscular Hemoglobin Concent 33 g/dL (31-37) 33 g/dL (31-37) Red Cell Distribution Width 15.2 % (11.5-14.5) 14.8 % (11.5-14.5) Platelet Count 216 x10^3/uL (140-400) 211 x10^3/uL (140-400) Neutrophils (%) (Auto) 59 % (31-73) Lymphocytes (%) (Auto) 32 % (24-48) Monocytes (%) (Auto) 7 % (0-9) Eosinophils (%) (Auto) 1 % (0-3) Basophils (%) (Auto) 1 % (0-3) Neutrophils # (Auto) 6.3 x10^3uL (1.8-7.7) Lymphocytes # (Auto) 3.5 x10^3/uL (1.0-4.8) Monocytes # (Auto) 0.8 x10^3/uL (0.0-1.1) Eosinophils # (Auto) 0.1 x10^3/uL (0.0-0.7) Basophils # (Auto) 0.1 x10^3/uL (0.0-0.2) Prothrombin Time 10.0 SEC (9.4-11.4) Prothromb Time International Ratio 1.0 (0.9-1.1) Activated Partial Thromboplast Time 25 SEC (23-33) Sodium Level 135 mmol/L (136-145) 137 mmol/L (136-145) Potassium Level 5.0 mmol/L (3.5-5.1) 4.2 mmol/L (3.5-5.1) Chloride Level 101 mmol/L (98-107) 104 mmol/L (98-107) Carbon Dioxide Level 27 mmol/L (21-32) 25 mmol/L (21-32) Anion Gap 7 (6-14) 8 (6-14) Blood Urea Nitrogen 14 mg/dL (7-20) 10 mg/dL (7-20) Creatinine 1.3 mg/dL (0.6-1.0) 1.0 mg/dL (0.6-1.0) Estimated GFR (Cockcroft-Gault) 41.1 55.6 BUN/Creatinine Ratio 11 (6-20) 10 (6-20) Glucose Level 86 mg/dL (70-99) 77 mg/dL (70-99) Calcium Level 8.6 mg/dL (8.5-10.1) 8.3 mg/dL (8.5-10.1) Magnesium Level 1.9 mg/dL (1.8-2.4) Total Bilirubin 0.2 mg/dL (0.2-1.0) 0.3 mg/dL (0.2-1.0) Aspartate Amino Transf (AST/SGOT) 16 U/L (15-37) 16 U/L (15-37) Alanine Aminotransferase (ALT/SGPT) 15 U/L (14-59) 7 U/L (14-59) Alkaline Phosphatase 78 U/L (46-116) 70 U/L (46-116) Creatine Kinase 151 U/L (26-192) 196 U/L (26-192) Troponin I Quantitative < 0.017 ng/mL (0-0.055) Total Protein 6.4 g/dL (6.4-8.2) 6.0 g/dL (6.4-8.2) Albumin 3.5 g/dL (3.4-5.0) 3.0 g/dL (3.4-5.0) Albumin/Globulin Ratio 1.2 (1.0-1.7) 1.0 (1.0-1.7) Thyroid Stimulating Hormone (TSH) 2.159 uIU/mL (0.358-3.740) Salicylates Level 5.8 mg/dL (2.8-20.0) Salicylate Last Dose Date Unk Salicylate Last Dose Time Unk Acetaminophen Level 10.5 mcg/mL (10-30) Acetaminophen Last Dose Date Unk Acetaminophen Last Dose Time Unk Ethyl Alcohol Level < 10 mg/dL (0-10) Brief Hospital Course Ms. Faulkner is a 66 old [sex] who presented with [ ] Discharge Information Condition at Discharge: Improved Follow Up: As Needed Disposition/Orders: D/C to Home, D/C to Home w/ HH Dischare Medications Current Medications Sodium Chloride 1,000 ml @ 1,000 mls/hr 1X ONCE IV Last administered on 14:38; Start 04/26/17 at 14:30; Stop 04/26/17 at 15:29; Status DC Ondansetron HCl (Zofran) 4 mg PRN Q4HRS PRN IV NAUSEA/VOMITING; Start 04/26/17 at 15:15; Stop 04/27/17 at 15:14; Status DC Amlodipine Besylate (Norvasc) 10 mg DAILY PO Last administered on 04/27/17 09: 17; Start 04/27/17 at 09:00 Aripiprazole (Abilify) 15 mg AFTRNOON PO Last administered on 04/27/17 13:21; Start 04/27/17 at 13:00 Aspirin (Aspirin Enteric Coated) 325 mg DAILYWBKFT PO Last administered on 09:17; Start 04/27/17 at 08:00 Atorvastatin Calcium (Lipitor) 20 mg QHS PO Last administered on 04/26/17 21:34 ; Start 04/26/17 at 21:00 Buspirone HCl (Buspar) 10 mg QHS PO Last administered on 04/26/17 21:34; Start 04/26/17 at 21:00 Carbidopa/Levodopa (Sinemet 25/100) 1 tab TID PO Last administered on 04/26/17 21:33; Start 04/26/17 at 21:00 Clonazepam (KlonoPIN) 2 mg PRN TID PRN PO ANXIETY; Start 04/26/17 at 17:45 Acetaminophen/ Hydrocodone Bitart (Lortab 7.5/325) 1 tab PRN Q6HRS PRN PO PAIN ; Start 04/26/17 at 17:45 Levothyroxine Sodium (Synthroid) 100 mcg DAILY07 PO Last administered on 06:26; Start 04/27/17 at 07:00 Potassium Chloride (Klor-Con) 40 meq BIDWMEALS PO Last administered on 09:17; Start 04/27/17 at 08:00 Raloxifene HCl (Evista) 60 mg DAILY PO Last administered on 04/27/17 09:17; Start 04/27/17 at 09:00 Sertraline HCl (Zoloft) 200 mg DAILY PO Last administered on 04/27/17 09:17; Start 04/27/17 at 09:00 Trazodone HCl (Desyrel) 300 mg QHS PO Last administered on 04/26/17 21:34; Start 04/26/17 at 21:00 Sodium Chloride 1,000 ml @ 100 mls/hr Q10H IV Last administered on 04/26/17 21 :33; Start 04/26/17 at 18:00 Nicotine Polacrilex (Nicorette Gum) 2 mg PRN Q1HR PRN BC SMOKING CESSATION; Start 04/26/17 at 18:30 Primidone (Mysoline) 50 mg BID PO ; Start 04/27/17 at 21:00 Active Scripts Active Aspirin Ec (Aspirin) 325 Mg Tablet.dr 325 Mg PO [id number] Klor-Con M20 (Potassium Chloride) 20 Meq Tab.er.prt 40 Meq PO BIDWMEALS Amlodipine Besylate 5 Mg Tablet 10 Mg PO DAILY MAY USE A 10 MG TAB Reported Primidone 50 Mg Tablet 1 Tab PO BID Lortab 7.5-325 mg Tablet (Hydrocodone/Acetaminophen) 1 Each Tablet 1 PO PRN Q6HRS PRN LAST DOSE GIVEN: DATE: TIME: NEXT DOSE DUE: DATE: TODAY TIME: IF AND WHEN NEEDED Levothyroxine Sodium 100 Mcg Tablet 100 Mcg PO DAILY07 LAST DOSE GIVEN: DATE: TODAY TIME: BEFORE BREAKFAST NEXT DOSE DUE: DATE: TOMORROW TIME: BEFORE BREAKFAST Evista (Raloxifene Hcl) 60 Mg Tablet 60 Mg PO DAILY LAST DOSE GIVEN: DATE: TODAY TIME: AM NEXT DOSE DUE: DATE: TOMORROW TIME: AM Atorvastatin Calcium 20 Mg Tablet 20 Mg PO QHS LAST DOSE GIVEN: DATE: YESTERDAY TIME: AT BEDTIME NEXT DOSE DUE: DATE: TODAY TIME: AT BEDTIME Sertraline Hcl 100 Mg Tablet 200 Mg PO DAILY LAST DOSE GIVEN: DATE: TODAY TIME: AM NEXT DOSE DUE: DATE: TOMORROW TIME: AM Abilify (Aripiprazole) 15 Mg Tablet 15 Mg PO AFTRNOON LAST DOSE GIVEN: DATE: YESTERDAY TIME: AFTERNOON NEXT DOSE DUE: DATE: TODAY TIME: AFTERNOON Buspirone Hcl 10 Mg Tablet 10 Mg PO QHS LAST DOSE GIVEN: DATE: YESTERDAY TIME: AT BEDTIME NEXT DOSE DUE: DATE: TODAY TIME: AT BEDTIME Trazodone Hcl 100 Mg Tablet 3 Tab PO QHS LAST DOSE GIVEN: DATE: YESTER TIME: AT BEDTIME NEXT DOSE DUE: DATE: TODAY TIME: AT BEDTIME Clonazepam 2 Mg Tablet 1 Tab PO TID PRN LAST DOSE GIVEN: DATE: TIME: NEXT DOSE DUE: DATE: TODAY TIME: IF AND WHEN NEEDED Patient Instructions Patient Instuctions To F/U with primary care physician and DUKE Ribeiro MD Apr 27, 2017 16:26
[2017-04-27] MEDS ORDERED: PRIMIDONE 50 MG TABLET PO SCH (21:00)
== END 2017-04-27 17:13 | disposition home health service (06) | DRG 948 ==
LOC: ER 14:03 → 1 SOUTH 15:16 → OBSVTOIN 04-27 08:02
PROVIDERS: ADMIT Internal Medicine; ATTEND Internal Medicine
DX: R53.1 Weakness (principal); G81.94 Hemiplegia, unspecified affecting left nondominant side; M19.90 Unspecified osteoarthritis, unspecified site; J44.9 Chronic obstructive pulmonary disease, unspecified; M81.0 Age-related osteoporosis without current pathological fracture; R29.6 Repeated falls; R33.9 Retention of urine, unspecified; G20 Parkinson's disease; F32.9 Major depressive disorder, single episode, unspecified; F17.210 Nicotine dependence, cigarettes, uncomplicated; E78.00 Pure hypercholesterolemia, unspecified; F41.9 Anxiety disorder, unspecified; H70.10 Chronic mastoiditis, unspecified ear; M40.209 Unspecified kyphosis, site unspecified; M54.5 Low back pain; Z60.2 Problems related to living alone; E86.0 Dehydration; W18.30XA Fall on same level, unspecified, initial encounter; W18.39XA Other fall on same level, initial encounter; I10 Essential (primary) hypertension; Z82.0 Family history of epilepsy and other diseases of the nervous system; Z82.49 Family history of ischemic heart disease and other diseases of the circulatory system; Z86.73 Personal history of transient ischemic attack (TIA), and cerebral infarction without residual deficits; Y93.89 Activity, other specified; Z88.5 Allergy status to narcotic agent; Z88.7 Allergy status to serum and vaccine; Z91.041 Radiographic dye allergy status; Z91.040 Latex allergy status; Y92.098 Other place in other non-institutional residence as the place of occurrence of the external cause; Y99.8 Other external cause status
CPT/HCPCS: 36415; 51701; 70450; 71010; 80053; 81001; 82550; 83735; 84443; 84484; 85027; 85610; 85730; 93005; 96360; G0378; G0379; G0480; G0481; 99285-25; J7030

== ENCOUNTER 2017-09-23 08:55 | Inpatient (IN) | payer MEDICARE, OTHER ==
[~2017-09-23] VITALS: Ht 160 cm; Wt 62.7 kg
[~2017-09-23 08:55] MED LIST changes: +PRIM50TA PO
[2017-09-23 09:32] LABS: BASO # 0.1 x10^3/uL (0.0-0.2); BASO % 1 % (0-3); EOS % 0 % (0-3); HEMATOCRIT 42.2 % (36.0-47.0); HEMOGLOBIN 14.4 g/dL (12.0-15.5); LYMPH # 2.1 x10^3/uL (1.0-4.8); LYMPH % 18 % (24-48); MEAN CORPUSCULAR HEMOGLOBIN 30 pg (25-35); MEAN CORPUSCULAR HGB CONC 34 g/dL (31-37); MEAN CORPUSCULAR VOLUME 87 fL (79-100); MONO # 0.7 x10^3/uL (0.0-1.1); MONO % 6 % (0-9); NEUT # 8.8 x10^3uL (1.8-7.7); NEUT % 75 % (31-73); PLATELET COUNT 421 x10^3/uL (140-400); RED BLOOD COUNT 4.84 x10^6/uL (3.50-5.40); RED CELL DISTRIBUTION WIDTH 14.1 % (11.5-14.5); WHITE BLOOD COUNT 11.8 x10^3/uL (4.0-11.0)
[2017-09-23 09:40] LABS: ALBUMIN/GLOBULIN RATIO 1.1 (1.0-1.7); CALCIUM 9.5 mg/dL (8.5-10.1); CREATININE 1.2 mg/dL (0.6-1.0); GFR 44.9; TOTAL BILIRUBIN 0.3 mg/dL (0.2-1.0); TOTAL PROTEIN 7.7 g/dL (6.4-8.2)
[2017-09-23] MEDS ORDERED: IV NORMAL SALINE 500ML 500 ML IV ONE (09:45)
[2017-09-23 09:50] LABS: BILIRUBIN,URINE NEG (NEG); CLARITY,URINE CLEAR; COLOR,URINE YELLOW; GLUCOSE,URINE NEG (NEG)
[2017-09-23 09:51] LABS: BACTERIA,URINE FEW /HPF (0-FEW); HYALINE CASTS, URINE FEW /HPF; NITRITE,URINE NEG (NEG); SQUAMOUS EPITHELIAL CELL,UR MOD /LPF; UROBILINOGEN,URINE 0.2 mg/dL (0.2 mg/dL)
[2017-09-23] MEDS ORDERED: IV NORMAL SALINE 1,000ML 1,000 ML IV SCH (10:00)
--- NOTE | 2017-09-23 10:00 | PHYS DOC ---
Past History Past Medical History: COPD, CVA, Depression, High Cholesterol, Hypertension, TIA Past Surgical History: Other Smoking: Cigarettes, Less than 1pk/day Alcohol Use: None Drug Use: None Adult General Chief Complaint Chief Complaint: TREMORS HPI HPI Patient is a [67] year old [female] who presents by EMS with [complaining of tremor. 67-year-old woman patient with history of Parkinson disease and CVA who lives at home by herself complaining of increasing tremor that getting worse for the last one week. Patient stated because of her tremor she is not able to take her medication and her condition getting worse. Patient denies fever, chills, focal neurologic deficit, nausea and vomiting, chest pain, shortness of breath. Patient complaining of chronic lower extremity pain. 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 Patient does not know the list of her medication and states she used to be on a rehab previously. Review of Systems Review of Systems Constitutional: Denies fever or chills [] Eyes: Denies change in visual acuity, redness, or eye pain [] HENT: Denies nasal congestion or sore throat [] Respiratory: Denies cough or shortness of breath [] Cardiovascular: No additional information not addressed in HPI [] GI: Denies abdominal pain, nausea, vomiting, bloody stools or diarrhea [] : Denies dysuria or hematuria [] Musculoskeletal: Denies back pain or joint pain [] Integument: Denies rash or skin lesions [] Neurologic: Denies headache, focal weakness or sensory changes , complaining of tremor Endocrine: Denies polyuria or polydipsia [] All other systems were reviewed and found to be within normal limits, except as documented in this note. Current Medications Current Medications Current Medications Medications (Trade) Dose Ordered Sig/Fede Start Time Stop Time Status Last Admin Dose Admin Sodium Chloride 500 ml @ 0 mls/hr 1X ONCE 09/23/17 09:45 09/23/17 09:46 UNV Allergies Allergies Allergies Coded Allergies Type Severity Reaction Last Updated Verified Tetanus Vaccines and Toxoid Allergy Intermediate 12/12/16 Yes iodine Allergy Intermediate 04/27/17 Yes latex Allergy Intermediate 04/27/17 Yes meperidine Allergy Intermediate 12/12/16 Yes Physical Exam Physical Exam Constitutional: mild distress, non-toxic appearance, poor hygiene. [] HENT: Normocephalic, atraumatic, bilateral external ears normal, oropharynx moist, no oral exudates, nose normal. [] Eyes: PERRLA, EOMI, conjunctiva normal, no discharge. [] Neck: Normal range of motion, no tenderness, supple, no stridor. [] Cardiovascular:Heart rate regular rhythm, no murmur [] Lungs & Thorax: Bilateral breath sounds clear to auscultation [] Abdomen: Bowel sounds normal, soft, no tenderness, no masses, no pulsatile masses. [] Skin: Warm, dry, no erythema, no rash. [] Back: No tenderness, no CVA tenderness. [] Extremities: No tenderness, no cyanosis, no clubbing, ROM intact, no edema, right hand tremor. [] Neurologic: Alert and oriented X 3, normal motor function, normal sensory function, facial droop is a chronic problem Psychologic: Affect normal, judgement normal, mood normal. [] Current Patient Data Vital Signs Vital Signs Date Time Temp Pulse Resp B/P (MAP) Pulse Ox O2 Delivery O2 Flow Rate FiO2 09/23/17 09:01 98.0 96 22 98 Room Air Lab Results Laboratory Tests Test 09/23/17 09:02 09/23/17 09:06 Urine Collection Type U cath Urine Color Yellow Urine Clarity Clear Urine pH 5.5 Urine Specific [place] 1.020 Urine Protein Trace Urine Glucose (UA) Neg mg/dL Urine Ketones (Stick) Trace mg/dL Urine Blood Trace Urine Nitrite Neg Urine Bilirubin Neg Urine Urobilinogen Dipstick 0.2 mg/dL Urine Leukocyte Esterase Neg Urine RBC 1-2 /HPF Urine WBC 1-4 /HPF Urine Squamous Epithelial Cells Mod /LPF Urine Bacteria Few /HPF Urine Hyaline Casts Few /HPF Urine Mucus Slight /LPF White Blood Count 11.8 x10^3/uL Red Blood Count 4.84 x10^6/uL Hemoglobin 14.4 g/dL Hematocrit 42.2 % Mean Corpuscular Volume 87 fL Mean Corpuscular Hemoglobin 30 pg Mean Corpuscular Hemoglobin Concent 34 g/dL Red Cell Distribution Width 14.1 % Platelet Count 421 x10^3/uL Neutrophils (%) (Auto) 75 % Lymphocytes (%) (Auto) 18 % Monocytes (%) (Auto) 6 % Eosinophils (%) (Auto) 0 % Basophils (%) (Auto) 1 % Neutrophils # (Auto) 8.8 x10^3uL Lymphocytes # (Auto) 2.1 x10^3/uL Monocytes # (Auto) 0.7 x10^3/uL Eosinophils # (Auto) 0.0 x10^3/uL Basophils # (Auto) 0.1 x10^3/uL Sodium Level 129 mmol/L Potassium Level 4.0 mmol/L Chloride Level 94 mmol/L Carbon Dioxide Level 23 mmol/L Anion Gap 12 Blood Urea Nitrogen 21 mg/dL Creatinine 1.2 mg/dL Estimated GFR (Cockcroft-Gault) 44.9 BUN/Creatinine Ratio 18 Glucose Level 122 mg/dL Calcium Level 9.5 mg/dL Total Bilirubin 0.3 mg/dL Aspartate Amino Transf (AST/SGOT) 25 U/L Alanine Aminotransferase (ALT/SGPT) 17 U/L Alkaline Phosphatase 99 U/L Creatine Kinase 328 U/L Total Protein 7.7 g/dL Albumin 4.0 g/dL Albumin/Globulin Ratio 1.1 Current Medications Medications (Trade) Dose Ordered Sig/Fede Route PRN Reason Start Time Stop Time Status Last Admin Dose Admin Sodium Chloride 500 ml @ 0 mls/hr 1X ONCE IV 09/23/17 09:45 09/23/17 09:53 DC Sodium Chloride 1,000 ml @ 500 mls/hr Q2H IV 09/23/17 10:00 09/23/17 10:59 Sodium Chloride 1,000 ml @ 100 mls/hr Q10H IV 09/23/17 10:15 09/24/17 10:14 09/23/17 10:17 Laboratory Tests Test 09/23/17 09:06 White Blood Count 11.8 x10^3/uL (4.0-11.0) H Red Blood Count 4.84 x10^6/uL (3.50-5.40) Hemoglobin 14.4 g/dL (12.0-15.5) Hematocrit 42.2 % (36.0-47.0) Mean Corpuscular Volume 87 fL (79-100) Mean Corpuscular Hemoglobin 30 pg (25-35) Mean Corpuscular Hemoglobin Concent 34 g/dL (31-37) Red Cell Distribution Width 14.1 % (11.5-14.5) Platelet Count 421 x10^3/uL (140-400) H Neutrophils (%) (Auto) 75 % (31-73) H Lymphocytes (%) (Auto) 18 % (24-48) L Monocytes (%) (Auto) 6 % (0-9) Eosinophils (%) (Auto) 0 % (0-3) Basophils (%) (Auto) 1 % (0-3) Neutrophils # (Auto) 8.8 x10^3uL (1.8-7.7) H Lymphocytes # (Auto) 2.1 x10^3/uL (1.0-4.8) Monocytes # (Auto) 0.7 x10^3/uL (0.0-1.1) Eosinophils # (Auto) 0.0 x10^3/uL (0.0-0.7) Basophils # (Auto) 0.1 x10^3/uL (0.0-0.2) Sodium Level 129 mmol/L (136-145) L Potassium Level 4.0 mmol/L (3.5-5.1) Chloride Level 94 mmol/L (98-107) L Carbon Dioxide Level 23 mmol/L (21-32) Anion Gap 12 (6-14) Blood Urea Nitrogen 21 mg/dL (7-20) H Creatinine 1.2 mg/dL (0.6-1.0) H Estimated GFR (Cockcroft-Gault) 44.9 BUN/Creatinine Ratio 18 (6-20) Glucose Level 122 mg/dL (70-99) H Calcium Level 9.5 mg/dL (8.5-10.1) Total Bilirubin 0.3 mg/dL (0.2-1.0) Aspartate Amino Transferase (AST) 25 U/L (15-37) Alanine Aminotransferase (ALT) 17 U/L (14-59) Alkaline Phosphatase 99 U/L (46-116) Creatine Kinase 328 U/L (26-192) H Total Protein 7.7 g/dL (6.4-8.2) Albumin 4.0 g/dL (3.4-5.0) Albumin/Globulin Ratio 1.1 (1.0-1.7) EKG EKG [] Radiology/Procedures Radiology/Procedures [] Impressions: Hyponatremia, generalized weakness, Parkinson tremor Course & Med Decision Making Course & Med Decision Making Pertinent Labs and Imaging studies reviewed. (See chart for details) [Evaluation of patient showed 67 year old female patient with history of Parkinson unable to taking care of herself. Patient had poor hygiene with mild dehydration and hyponatremia. Plan to admit patient for Placement and starting IV fluid at 100ML/h. Dr Osei accepted admission at 1001. Dragon Disclaimer Dragon Disclaimer This electronic medical record was generated, in whole or in part, using a voice recognition dictation system. Departure Departure: Impression: Primary Impression: Hyponatremia Additional Impressions: Dehydration Generalized weakness Parkinsonian tremor Disposition: ADMITTED INPATIENT (at 1005) Admitting Physician: Elizabeth Osei Condition: IMPROVED Referrals: EWA GOULD APRN (PCP) Problem Qualifiers BETH GILL MD Sep 23, 2017 10:00
[2017-09-23] MEDS: IV NORMAL SALINE 1,000ML 1,000 ML IV SCH ×2 (10:17→20:15)
[2017-09-23 10:51] VITALS: BP 162/94
[2017-09-23 10:57] VITALS: BP 162/94
--- NOTE | 2017-09-23 12:54 | HP ---
ADMIT DATE: 09/23/2017 REASON FOR ADMISSION: Weakness, diarrhea, dehydration, tremors. HISTORY OF PRESENT ILLNESS: This is a 67-year-old female with Parkinson's disease who has been unable to take her medications for at least 5 days, who has had severe tremors for 3 days and severe diarrhea for about 5 days, which she describes as watery and continuous. She denies any recent antibiotic intake over the last 5 months. PAST MEDICAL HISTORY: Falls, Parkinson's disease, arthritis, weakness, restless leg syndrome, urinary retention, osteoporosis, hypertension, hyperlipidemia, chronic pain. ALLERGIES: TETANUS VACCINE, IODINE, LATEX AND DEMEROL. MEDICATIONS: Amlodipine 5 mg 2 daily, aripiprazole 15 mg 1 daily, atorvastatin 20 mg at bedtime, BuSpar 10 mg at bedtime, clonazepam 2 mg one-half to one tablet 3 times a day, hydrocodone APAP 7.5/325 one tablet by mouth four times a day, levothyroxine 100 mcg daily, lisinopril 40 mg a day, Remeron 15 mg at bedtime, potassium 60 mEq daily, primidone 50 mg b.i.d., Zoloft 100 mg daily, trazodone 300 mg at bedtime. These are from list from the pharmacy. The patient does not know her meds. FAMILY HISTORY: Positive for liver failure, multiple sclerosis. SOCIAL HISTORY: The patient does smoke, but has not smoked in 3 days. Alcohol: None. Drugs: None. Lives alone. REVIEW OF SYSTEMS: Negative for sore throat. Negative for fever, positive for weakness. Positive for diarrhea, negative for urinary symptoms. Negative for abdominal pain. Positive difficulty swallowing. Positive for severe tremor. PHYSICAL EXAMINATION: VITAL SIGNS: Blood pressure 162/94, pulse 76, respirations 20, temperature 97.9, pulse ox 96% on room air. GENERAL: The patient is very tremulous at rest. HEENT: Her eyes are clear. Tongue was dry. NECK: Supple. LUNGS: Clear. CARDIOVASCULAR: Regular rhythm and rate. ABDOMEN: Soft, nontender. EXTREMITIES: Without edema. Poor muscle tone in the lower extremities, severe tremors. NEUROLOGIC: She is alert and oriented. LABORATORY DATA: Sodium 129, potassium 4, chloride 94, BUN 21, creatinine 1.2. The patient's creatinine was 1.3 back in 04/2017. CPK is 328. Lactic acid 1.4. CBC: White blood cell count 11.8, platelet count 421. ASSESSMENT: 1. Severe gastroenteritis. 2. Hyponatremia. 3. Dehydration. 4. Three days of not eating and drinking and taking her meds. 5. Leukocytosis, probably inflammatory. PLAN: IV saline. PT, OT, speech. Neurology consult. Continue from there. VANESA KELLEY DO DR: CHARLES/cristhian JOB#: [id number] / [id number]
[2017-09-23] MEDS ORDERED: HYDROcodone/APAP 7.5/325MG 1 TAB TABLET PO PRN (13:30)
[2017-09-23 15:44] VITALS: BP 144/82
[2017-09-23] MEDS: POTASSIUM CHLORIDE 20 MEQ TABLET.ER. PO SCH (18:37)
[2017-09-23] MEDS: CARBIDOPA/LEVODOPA 25/100MG TABLET PO SCH ×2 (18:37→21:52)
[2017-09-23 19:31] VITALS: BP 137/74
[2017-09-23] MEDS: busPIRone 10 MG TABLET. PO SCH (19:47)
[2017-09-23] MEDS: ATORVASTATIN CALCIUM 20 MG TABLET PO SCH (19:47)
[2017-09-23] MEDS: traZODone 100 MG TABLET. PO SCH (19:48)
[2017-09-23] MEDS: PRIMIDONE 50 MG TABLET PO SCH (19:48)
[2017-09-23] MEDS: clonazePAM 2 MG TABLET PO PRN (19:54)
[2017-09-23 23:03] VITALS: BP 126/77
--- NOTE | 2017-09-24 00:10 | CONS ---
DATE OF CONSULTATION: 09/23/2017 NEUROLOGY CONSULT REFERRING PHYSICIAN: Dr. Osei. REASON FOR CONSULTATION: Severe tremor of the upper extremities. HISTORY OF PRESENT ILLNESS: This is a 67-year-old right-handed female who was admitted to Emergency Room after she presented with longstanding history of tremor of the upper extremities. The tremor has been worsening in the last week and she related that she was not taking tremor medication "carbidopa/levodopa." However, the patient stated she is off that medication for longer period. She stated she could not take her medications because of severe tremor. Currently, she denies headaches, visual disturbances, nausea, vomiting, chest pain, shortness of breath or palpitation, dysarthria, dysphagia, weakness or paresthesia. PAST MEDICAL HISTORY: Significant for depression, anxiety, hypothyroidism, parkinsonian tremor, essential tremor, hypertension, and hyperlipidemia. SOCIAL HISTORY: The patient denies smoking, alcohol drinking, or illicit drug use. CURRENT MEDICATIONS: Trazodone 100 mg at bedtime, sertraline 100 mg 2 tablets a.m., amlodipine 5 mg take 2 tablets daily, aripiprazole 15 mg daily, Lipitor 20 mg p.o. nightly, buspirone 10 mg p.o. nightly, mirtazapine 15 mg p.o. daily, lisinopril 40 mg p.o. daily, levothyroxine 100 mcg p.o. daily, primidone 50 mg 1 tablet b.i.d., potassium 20 mEq 2 tablets daily, ____ clonazepam 1 mg p.o. 3 times daily. The patient is supposed to take carbidopa/levodopa 25/100 mg p.o. t.i.d. for tremor. ALLERGIES: TETANUS VACCINE TOXOID, IODINE, LATEX, AND MEPERIDINE. FAMILY HISTORY: Mother had liver disease. Father had heart attacks. Sister had multiple sclerosis. REVIEW OF SYSTEMS: A 10-point review of system was performed as mentioned above in history of present illness consistent with severe tremor of the upper extremities. Otherwise, as mentioned above in the history of present illness. PHYSICAL EXAMINATION: GENERAL: Well-developed, well-nourished female, not in acute distress. VITAL SIGNS: Blood pressure is 162/94, respiratory rate 20, pulse 76, temperature 97.9, oxygen saturation 96% on room air. HEENT: Normocephalic, atraumatic, otherwise unremarkable. NECK: Supple. Negative for carotid bruit, lymphadenopathy or thyromegaly. LUNGS: Clear to A and P. CARDIOVASCULAR: Regular rate and rhythm. Normal S1, S2. There is no S3, S4 or murmur. ABDOMEN: Soft. Bowel sounds positive. EXTREMITIES: Negative for cyanosis, clubbing or pitting edema. NEUROLOGICAL EXAM: Mental Status: The patient is alert and oriented x 3. Speech is fluent. There is no language dysfunction. Memory, judgment, and abstract thinking are normal. The patient denies hallucination or delusion. CRANIAL NERVES: Visual patel are full. The pupils are reactive to light and accommodation. Extraocular movements are intact. There is no nystagmus. There is a mild left facial asymmetry of unknown etiology. Hearing is intact bilaterally. The palate is elevated symmetrically. Sternocleidomastoid muscles are powerful bilaterally. The patient shrugs her shoulders symmetrically and protrudes her tongue in the midline without fasciculation or atrophy. MOTOR: No focal muscle bulk was seen. The tone is normal. The strength is 4/5 throughout. Sensory examination revealed normal pinprick, light touch, vibratory and position senses. Deep tendon reflexes were asymmetric and active without pathologic responses. Gait not tested at this time. The patient had resting tremor more prominent on the right upper extremity and mild postural and kinetic tremors of both upper extremities. LABORATORY DATA: CBC revealed white blood cells of 11.8, hemoglobin 14.4, hematocrit 42.2, platelet count 421,000. Chemistry revealed sodium of 129, potassium 4, chloride 94, CO2 of 23, BUN 21, creatinine 1.2, and creatinine kinase is high at 328, glucose is 122, and calcium 9.5. Liver enzymes are normal. Urinalysis is negative for urinary tract infection. DIAGNOSTIC DATA: MRI and MRA performed in November 2016 revealed no evidence of acute intracranial process or any other pathology. IMPRESSION: 1. Parkinsonian tremor. 2. Possible essential/senile tremor. 3. Multiple medical problems include hypertension, hyperlipidemia, hypothyroidism, depression, anxiety, and possible bipolar disorder. 4. Dehydration. RECOMMENDATIONS: 1. Resume carbidopa/levodopa at 25/100 one tablet 3 times daily. 2. Continue with primidone 50 mg twice daily. 3. Physical therapy evaluation. 4. Continue with current management initiated by Dr. Osei. 5. Hydration. M Chris LARIOS MD DR: David JOB#: [id number] / [id number]
[2017-09-24] MEDS ORDERED: Influenza vaccine per PROTOCOL. MC PRN (01:30)
[2017-09-24 05:29] VITALS: BP 126/76
[2017-09-24] MEDS: LEVOTHYROXINE 100 MCG TABLET PO SCH (05:42)
[2017-09-24] MEDS: IV NORMAL SALINE 1,000ML 1,000 ML IV SCH (05:42)
[2017-09-24 06:44] LABS: HEMATOCRIT 35.4 % (36.0-47.0); HEMOGLOBIN 12.2 g/dL (12.0-15.5); RED BLOOD COUNT 4.03 x10^6/uL (3.50-5.40); RED CELL DISTRIBUTION WIDTH 14.2 % (11.5-14.5); WHITE BLOOD COUNT 10.2 x10^3/uL (4.0-11.0)
[2017-09-24 07:00] LABS: ALBUMIN 3.1 g/dL (3.4-5.0); ALBUMIN/GLOBULIN RATIO 1.1 (1.0-1.7); CREATININE 1.2 mg/dL (0.6-1.0); GFR 44.9; MAGNESIUM 1.9 mg/dL (1.8-2.4); POTASSIUM 4.2 mmol/L (3.5-5.1); TOTAL BILIRUBIN 0.2 mg/dL (0.2-1.0)
[2017-09-24 07:12] LABS: CALCIUM 8.4 mg/dL (8.5-10.1)
[2017-09-24] MEDS: POTASSIUM CHLORIDE 20 MEQ TABLET.ER. PO SCH ×2 (08:21→17:00)
[2017-09-24] MEDS: CARBIDOPA/LEVODOPA 25/100MG TABLET PO SCH ×3 (08:22→19:33)
[2017-09-24] MEDS: SERTRALINE 100 MG TABLET. PO SCH (08:22)
[2017-09-24] MEDS: TAMSULOSIN 0.4 MG CAP.ER.24H. PO SCH ×2 (08:22→09:00)
[2017-09-24] MEDS: amLODIPine BESYLATE 10 MG TABLET PO SCH (08:22)
[2017-09-24] MEDS: ASPIRIN ENTERIC COATED 325 MG TABLET.DR. PO SCH (08:23)
[2017-09-24] MEDS: RALOXIFENE 60 MG TABLET. PO SCH (08:23)
[2017-09-24] MEDS: PRIMIDONE 50 MG TABLET PO SCH ×2 (08:23→19:34)
[2017-09-24] MEDS ORDERED: FLU VACC QS2017-18 (36MOS+)/PF 0.5 ML SYRINGE. VAX IM ONE (09:00)
--- NOTE | 2017-09-24 09:27 | RAD ---
ABDOMEN SUPINE UPRIGHT Clinical Indication: DIARRHEA FOR ONE WEEK Comparison: None. Technique: Routine, upright and supine views of the abdomen are obtained. Findings: Free air is seen the knees both hemidiaphragms consistent with pneumoperitoneum. A moderate amount is suggested beneath the hemidiaphragms. Lucency is seen on either side of bowel loops on the supine image, also consistent with pneumoperitoneum. A foreign body overlies the upper abdomen, likely representing a percutaneous enteric tube. No dilated bowel loops are seen to suggest obstruction. Degenerative changes are seen within the spine. Visualized lung bases appear clear. IMPRESSION: Moderate pneumoperitoneum. This was immediately discussed with the patient's physician at the time of dictation on 09/23/17.
--- NOTE | 2017-09-24 10:44 | RAD ---
EXAM: CT abdomen and pelvis without contrast. HISTORY: Free air seen on radiograph. Abdominal pain. TECHNIQUE: Computed tomographic images of the abdomen and pelvis are obtained without the use of intravenous contrast, given iodine allergy.. Multiplanar reformatting was performed. One or more of the following individualized dose reduction techniques were utilized for this examination: 1. Automated exposure control 2. Adjustment of the mA and/or kV according to patient size 3. Use of iterative reconstruction technique COMPARISON: None. FINDINGS: Visualized lung bases demonstrate no acute finding, aside from right basilar and lingular atelectasis. A at least moderate amount of pneumoperitoneum is present, as indicated on recent radiograph. Detailed evaluation of intra-abdominal and pelvic organs and vascular structures is limited given lack of intravenous and oral contrast. Within this limitation, the liver, gallbladder, spleen, pancreas and adrenal glands demonstrate no focal abnormality. The adrenal glands both appear thickened without a definite mass seen. Mild right perinephric stranding is seen, although similar to the contralateral side. A couple rounded hypodensities are seen within the left renal cortex. A low-density to isoechoic lesion is also seen extending off the superior medial left kidney, incompletely characterized. No hydronephrosis or nephrolithiasis is seen. Vascular calcifications are seen within the left renal hilum. No dilated bowel loops are seen to suggest obstruction. Evaluation of the bowel is limited given lack of contrast, however no focal area of bowel wall thickening is seen to suggest colitis. Appendix is normal in caliber in the right lower quadrant, air-filled. Free air is seen scattered throughout the abdomen and pelvis, limiting localization to a specific site. Foreign body seen overlying the upper abdomen on the radiograph is not visualized on the CT exam, therefore this appears to have represented external artifact overlying the patient. There is significant atherosclerotic calcification of the abdominal aorta which remains normal in caliber. Urinary bladder is distended with urine and grossly unremarkable. Uterus appears visualized, slightly atrophic. A 4.5 cm oval cystic structure is seen within the right hemipelvis appearing to correspond with the region of the adnexa. No left adnexal mass is seen. No intra-abdominal or pelvic free fluid or significant lymphadenopathy is seen. Overlying soft tissues and visualized osseous structures demonstrate no acute or suspicious finding. IMPRESSION: 1. Redemonstration of moderate pneumoperitoneum, previously discussed with the patient's physician. No focal bowel abnormality is seen on this noncontrast study to suggest origin of the pneumoperitoneum, which is seen diffusely throughout the abdomen and pelvis. 2. Left renal hypodensities and right adnexal cystic structure can be further evaluated with outpatient ultrasound. Ultrasound would be technically difficult to perform at this time secondary to artifact from overlying pneumoperitoneum.
[2017-09-24 11:01] VITALS: BP 136/77
[2017-09-24] MEDS: ARIPiprazole 15 MG TABLET PO SCH (14:28)
[2017-09-24 14:33] VITALS: BP 133/73
--- NOTE | 2017-09-24 15:11 | PDOC ---
ELKIN MORSE HYGIENE TEACHER 09/24/17 1511: SURGICAL PROGRESS NOTE Subjective Findings of pneumoperitoneum--the case was called to Dr Painting, he recommended transfer to [facility] for further surgical evaluation and management, as can not be provided at [facility] I spoke with nurse on phone, states patient is refusing transfer to [facility], nurse states that patient is aware can not receive needed surgical evaluation and management at [facility] and staying is not recommended--still is not willing to transfer--Dr Painting is aware of this Vital Signs Vital Signs Date Time Temp Pulse Resp B/P (MAP) Pulse Ox O2 Delivery O2 Flow Rate FiO2 09/24/17 14:33 98.3 92 20 133/73 (93) 93 Room Air I&O Intake and Output 09/24/17 07:00 Intake Total 500 ml Output Total 950 ml Balance -450 ml Intake Oral 500 ml Output Urine Total 950 ml # Voids 1 Labs Laboratory Tests Test 09/23/17 09:02 09/23/17 09:06 09/23/17 10:45 09/24/17 06:35 Urine Collection Type U cath Urine Color Yellow Urine Clarity Clear Urine pH 5.5 Urine Specific [place] 1.020 Urine Protein Trace (NEG-TRACE) Urine Glucose (UA) Neg mg/dL (NEG) Urine Ketones (Stick) Trace mg/dL (NEG) Urine Blood Trace (NEG) Urine Nitrite Neg (NEG) Urine Bilirubin Neg (NEG) Urine Urobilinogen Dipstick 0.2 mg/dL (0.2 mg/dL) Urine Leukocyte Esterase Neg (NEG) Urine RBC 1-2 /HPF (0-2) Urine WBC 1-4 /HPF (0-4) Urine Squamous Epithelial Cells Mod /LPF Urine Bacteria Few /HPF (0-FEW) Urine Hyaline Casts Few /HPF Urine Mucus Slight /LPF White Blood Count 11.8 x10^3/uL (4.0-11.0) 10.2 x10^3/uL (4.0-11.0) Red Blood Count 4.84 x10^6/uL (3.50-5.40) 4.03 x10^6/uL (3.50-5.40) Hemoglobin 14.4 g/dL (12.0-15.5) 12.2 g/dL (12.0-15.5) Hematocrit 42.2 % (36.0-47.0) 35.4 % (36.0-47.0) Mean Corpuscular Volume 87 fL (79-100) 88 fL (79-100) Mean Corpuscular Hemoglobin 30 pg (25-35) 30 pg (25-35) Mean Corpuscular Hemoglobin Concent 34 g/dL (31-37) 34 g/dL (31-37) Red Cell Distribution Width 14.1 % (11.5-14.5) 14.2 % (11.5-14.5) Platelet Count 421 x10^3/uL (140-400) 340 x10^3/uL (140-400) Neutrophils (%) (Auto) 75 % (31-73) Lymphocytes (%) (Auto) 18 % (24-48) Monocytes (%) (Auto) 6 % (0-9) Eosinophils (%) (Auto) 0 % (0-3) Basophils (%) (Auto) 1 % (0-3) Neutrophils # (Auto) 8.8 x10^3uL (1.8-7.7) Lymphocytes # (Auto) 2.1 x10^3/uL (1.0-4.8) Monocytes # (Auto) 0.7 x10^3/uL (0.0-1.1) Eosinophils # (Auto) 0.0 x10^3/uL (0.0-0.7) Basophils # (Auto) 0.1 x10^3/uL (0.0-0.2) Sodium Level 129 mmol/L (136-145) 130 mmol/L (136-145) Potassium Level 4.0 mmol/L (3.5-5.1) 4.2 mmol/L (3.5-5.1) Chloride Level 94 mmol/L (98-107) 98 mmol/L (98-107) Carbon Dioxide Level 23 mmol/L (21-32) 23 mmol/L (21-32) Anion Gap 12 (6-14) 9 (6-14) Blood Urea Nitrogen 21 mg/dL (7-20) 17 mg/dL (7-20) Creatinine 1.2 mg/dL (0.6-1.0) 1.2 mg/dL (0.6-1.0) Estimated GFR (Cockcroft-Gault) 44.9 44.9 BUN/Creatinine Ratio 18 (6-20) 14 (6-20) Glucose Level 122 mg/dL (70-99) 98 mg/dL (70-99) Calcium Level 9.5 mg/dL (8.5-10.1) 8.4 mg/dL (8.5-10.1) Total Bilirubin 0.3 mg/dL (0.2-1.0) 0.2 mg/dL (0.2-1.0) Aspartate Amino Transf (AST/SGOT) 25 U/L (15-37) 20 U/L (15-37) Alanine Aminotransferase (ALT/SGPT) 17 U/L (14-59) 11 U/L (14-59) Alkaline Phosphatase 99 U/L (46-116) 74 U/L (46-116) Creatine Kinase 328 U/L (26-192) Total Protein 7.7 g/dL (6.4-8.2) 6.0 g/dL (6.4-8.2) Albumin 4.0 g/dL (3.4-5.0) 3.1 g/dL (3.4-5.0) Albumin/Globulin Ratio 1.1 (1.0-1.7) 1.1 (1.0-1.7) Lactic Acid Level 1.4 mmol/L (0.4-2.0) Magnesium Level 2.0 mg/dL (1.8-2.4) 1.9 mg/dL (1.8-2.4) DONTA PAINTING MD 09/25/17 8682: SURGICAL PROGRESS NOTE Assessment/Plan Agree, recommend transfer, apparently patient refused ELKIN MORSE HYGIENE TEACHER Sep 24, 2017 15:11 DONTA PAINTING MD Sep 25, 2017 21:08
[2017-09-24] MEDS: ENOXAPARIN 40 MG/0.4 ML DISP.SYRIN. SQ SCH (16:44)
[2017-09-24 19:18] VITALS: BP 128/73
[2017-09-24] MEDS: busPIRone 10 MG TABLET. PO SCH (19:33)
[2017-09-24] MEDS: clonazePAM 2 MG TABLET PO PRN (19:33)
[2017-09-24] MEDS: ATORVASTATIN CALCIUM 20 MG TABLET PO SCH (19:33)
[2017-09-24] MEDS: traZODone 100 MG TABLET. PO SCH (19:33)
[2017-09-24] MEDS: LACTOBACILLUS RHAMNOSUS GG 1 CAPSULE. PO SCH (19:33)
--- NOTE | 2017-09-24 21:37 | PN ---
DATE: 09/24/2017 CURRENT PROBLEMS: 1. Severe gastroenteritis which has resolved. 2. Hyponatremia. 3. Dehydration, resolved. 4. Three days not eating and drinking, taking her meds. 5. Severe tremors, markedly improved with her medications. 6. Insomnia, improved somewhat. 7. Leukocytosis. 8. New finding of pneumoperitoneum. SUBJECTIVE: I received a call from Dr. Duffy radiologist this morning regarding her KUB that showed a moderate pneumoperitoneum since this was ordered on 09/23/2017, I was actually not called about until 09/24/2017 that is an erroneous date. There was some question about a foreign body in her abdomen; however, that was an external alert alarm, but she thinks she has around her neck. The patient is remarkably asymptomatic with exception of some urinary retention. She actually wanted to be discharged today. She has no shortness of breath, no chest pain, no abdominal pain or anywhere again just having some problems urinating. OBJECTIVE: VITAL SIGNS: Blood pressure 136/77, temperature 97.5, pulse 84, respirations 20, pulse ox 98% on room air. GENERAL: She is sitting up in bed. She looks much better. She has been well hydrated. HEENT: Her tongue was moist. LUNGS: Clear. CARDIOVASCULAR: Regular rhythm and rate. ABDOMEN: Soft. Bowel sounds are positive. Nontender. EXTREMITIES: Without edema. GENITOURINARY: Bladder is somewhat distended and she has been having trouble urinating. LABORATORY DATA: Her white count yesterday was 11.8, this morning is 10.2 that is not on an antibiotic. Sodium was 130, up from 129, creatinine 1.2 about the same. BUN is corrected now from [address] of the abdomen and pelvis show moderate pneumoperitoneum, but no focal bowel abnormality to suggest the origin, left renal hypodensities, right adnexal cystic structure which would need to be done requiring an ultrasound. PLAN: Discussed with Dr. Painting, surgeon from [place], he recommended transfer. The patient has emphatically refused to be transferred, but has agreed to stay here one additional night. Myself and the nursing staff have reiterated to her the complications of not going down to [place] to be evaluated for this pneumoperitoneum. She emphatically denies any falling, any injury, any recent surgery, any recent procedures and does not feel that this is what she wants to do. I have not had her signed an informed consent to that effect. For now, we will keep her here and perhaps can convince her tomorrow to be transferred. VANESA KELLEY DO DR: Seb JOB#: [id number] / [id number]
--- NOTE | 2017-09-24 21:37 | PN ---
DATE: 09/24/2017 SUBJECTIVE: The patient denies any new medical or neurological complaints. She stated her tremor of the hands and arms have been less frequent and less severe after she started taking carbidopa/levodopa. She denies abdominal pain, but she is not able to urinate. Therefore, she got indwelling catheter and placed on Flomax; hopefully, she can urinate. X-ray and CT of the abdomen showed moderate pneumoperitoneum. The surgical service was consulted and recommended to transfer the patient to [facility], but the patient refused as she he does not complain of abdominal pain. OBJECTIVE: GENERAL: Well-developed, well-nourished white female, not in acute distress. VITAL SIGNS: Blood pressure 133/73, respiratory rate 20, pulse is 92, temperature 98.3, and oxygen saturation 93% on room air. HEENT: Normocephalic, atraumatic, otherwise unremarkable. NECK: Supple. Negative for carotid bruit, lymphadenopathy or thyromegaly. LUNGS: Clear to A and P. CARDIOVASCULAR: Regular rate and rhythm. Normal S1, S2. There is no S3, S4 or murmur. ABDOMEN: Soft and bowel sounds are positive. No palpable mass, organomegaly or tenderness. EXTREMITIES: Negative for cyanosis, clubbing or pitting edema. NEUROLOGIC: Normal mental status and intact cranial nerves. There is mild left facial asymmetry. Otherwise, unremarkable. MOTOR: Examination revealed no focal muscle bulk was seen. The strength was 4/5 throughout. Sensory examination revealed normal pinprick, light touch, vibratory and position senses. Deep tendon reflexes are symmetric and active without pathology responses. Gait not tested. The patient continues to have mild resting tremor of the upper extremities, more prominent on the right side. LABORATORY DATA: CBC revealed white blood cells of 10,200, hemoglobin 12.2, hematocrit 35.4, platelet count 340,000. Chemistry revealed sodium of 130, potassium 4.2, chloride 98, CO2 of 23, BUN 17, creatinine 1.2, glucose is 98, and calcium 8.4. Liver enzymes are normal. AST and low ALT. IMPRESSION: 1. Parkinsonian tremor. 2. Possible senile/essential tremor. 3. Abdominal CT scan consistent with normal peritoneum of moderate severity. 4. Multiple medical problems include hypertension, hyperlipidemia, depression, anxiety, possible bipolar disorder, and hypothyroidism. RECOMMENDATIONS: 1. Continue with the current management with carbidopa/levodopa 25/100 t.i.d. 2. Continue with the current care initiated by Dr. Osei. M Chris LARIOS MD DR: FELI/cristhian JOB#: [id number] / [id number]
[2017-09-24 23:07] VITALS: BP 115/74
[2017-09-25] MEDS ORDERED: HYDROcodone/APAP 7.5/325MG 1 TAB TABLET PO PRN (02:15)
[2017-09-25] MEDS: LEVOTHYROXINE 100 MCG TABLET PO SCH (05:13)
[2017-09-25 05:30] VITALS: BP 121/72
[2017-09-25 06:27] LABS: CALCIUM 8.5 mg/dL (8.5-10.1); CREATININE 1.1 mg/dL (0.6-1.0); GFR 49.7; POTASSIUM 4.3 mmol/L (3.5-5.1)
[2017-09-25 06:29] LABS: HEMATOCRIT 34.4 % (36.0-47.0); HEMOGLOBIN 11.7 g/dL (12.0-15.5); RED BLOOD COUNT 3.91 x10^6/uL (3.50-5.40); RED CELL DISTRIBUTION WIDTH 14.3 % (11.5-14.5); WHITE BLOOD COUNT 10.2 x10^3/uL (4.0-11.0)
[2017-09-25] MEDS: ASPIRIN ENTERIC COATED 325 MG TABLET.DR. PO SCH (08:32)
[2017-09-25] MEDS: LACTOBACILLUS RHAMNOSUS GG 1 CAPSULE. PO SCH (08:32)
[2017-09-25] MEDS: SERTRALINE 100 MG TABLET. PO SCH (08:32)
[2017-09-25] MEDS: CARBIDOPA/LEVODOPA 25/100MG TABLET PO SCH ×2 (08:32→13:34)
[2017-09-25] MEDS: TAMSULOSIN 0.4 MG CAP.ER.24H. PO SCH (08:33)
[2017-09-25] MEDS: PRIMIDONE 50 MG TABLET PO SCH (08:33)
[2017-09-25] MEDS: POTASSIUM CHLORIDE 20 MEQ TABLET.ER. PO SCH (08:33)
[2017-09-25] MEDS: RALOXIFENE 60 MG TABLET. PO SCH (08:33)
[2017-09-25] MEDS: amLODIPine BESYLATE 10 MG TABLET PO SCH (08:33)
[2017-09-25 11:06] VITALS: BP 122/76
[2017-09-25] MEDS: ARIPiprazole 15 MG TABLET PO SCH (13:34)
[2017-09-25 14:32] VITALS: BP 147/68
[2017-09-25] MEDS: ENOXAPARIN 40 MG/0.4 ML DISP.SYRIN. SQ SCH (17:00)
--- NOTE | 2017-09-26 09:05 | DS ---
DATE OF DISCHARGE: 09/25/2017 HOSPITAL COURSE: The patient is a 67-year-old female patient, who was admitted with weakness, diarrhea, dehydration, and tremors. The patient is known to have history of Parkinson's disease and has been unable to take her medication for at least 5 days before admission to the hospital. She has severe tremors for 3 days and severe diarrhea for about 5 days, which she describes as watery and continuous. She denied any recent antibiotic intake over the last 5 months. She was admitted initially with the diagnoses of severe gastroenteritis, hyponatremia, dehydration, and leukocytosis. She was started on Flagyl and potassium, continued on her other medications. Her abdominal x-ray initially showed that she has moderate pneumoperitoneum. There was ____ seen beneath both hemidiaphragms consistent with pneumoperitoneum of moderate amount suggested beneath the hemidiaphragm, lucencies seen on either side of bowel loops and the supine images also consistent with pneumoperitoneum. A foreign body overlying the upper abdomen, likely representing a percutaneous enteric tube; however, there are no dilated loops seen to suggest obstruction. Degenerative changes are seen within the spine. Visualized pancreas appeared to be clear. She has had a CT scan of the abdomen and pelvis, which showed that there is redemonstration of moderate pneumoperitoneum previously discussed with the patient's physician. No focal bowel abnormality seen on this noncontrasted study to suggest the origin of the pneumoperitoneum, which is seen diffusely throughout the abdomen and pelvis. She has also left renal hypodensities and the right adnexal cystic structure can be further evaluated with outpatient ultrasound. Ultrasound will be technically difficult to perform at this time secondary to artifact from overlying pneumoperitoneum. The surgeon on-call was contacted and he recommended transferring the patient to [facility]; however, the patient has emphatically refused to be transferred but agreed to stay here one more additional night. Dr. Osei and the other nursing staff reiterated to her the complications of not going down to [place] to be evaluated for ____ and she adamantly refused; however, when I spoke to her today, she agreed to go. PHYSICAL EXAMINATION: GENERAL: When I examined her this afternoon, she looked well and was clearly in no apparent respiratory distress. She was pale. No jaundice, cyanosis, or thyromegaly. No jugular venous distension. No limb edema. VITAL SIGNS: Her heart rate was 90, blood pressure was 147/68, temperature was 98.2, respiratory rate 20, and oxygen saturation was 95%. HEAD, EYES, EARS, NOSE, AND THROAT: Normocephalic, atraumatic. NECK: Supple. HEART: Showed normal first and second heart sounds with no gallop, rub, or murmur. CHEST: Clear to auscultation. No crepitation or rhonchi. ABDOMEN: Distended, soft, nontender. No guarding or rigidity. No organomegaly. Hernial orifice was intact. Bowel sounds normal. NEUROLOGIC: She was awake, alert, responding appropriately. Cranial nerves were intact. She moves extremities without difficulty. Her intake over the last 24 hours was 2300, output was 1675. LABORATORY DATA: Her lab work as of this morning continued to show hyponatremia with the serum sodium of 129, potassium 4.3, chloride 99, bicarbonate 22, anion gap of 8, BUN 16, creatinine 1.1, estimated GFR was 49 mL per minute. Her glucose was 96, calcium was 8.5, magnesium was 1.9. Total bilirubin, AST, ALT, alkaline phosphatase were normal. Total protein 6, albumin was 3.1. Her white cell count was 10,200, hemoglobin 11.7, hematocrit 34, MCV 88, and platelet count 323,000. Urinalysis was unremarkable. PLAN: The patient will be transferred to [facility]. I held all her oral medications, continued with the Flagyl, IV fluids as well as Lovenox. I consulted the surgical team and obviously, we will decide on further management accordingly. FINAL DISCHARGE DIAGNOSES: Extensive pneumoperitoneum with possible loculated perforation, Parkinson's disease. DUKE CHRISTINE MD DR: RODERICK/cristhian JOB#: [id number] / [id number]
--- NOTE | 2017-09-26 21:37 | PN ---
DATE: 09/25/2017 SUBJECTIVE: The patient denies any new medical or neurological complaints. She stated that her tremor has been since started after she was started on carbidopa/levodopa along with clonazepam for anxiety. She denies any abdominal pain, but she complains of weakness of the legs because she has been in bed since admission and not able to do physical therapy with a indwelling catheter in. OBJECTIVE: GENERAL: Well-developed, well-nourished white female, not in acute distress. VITAL SIGNS: Blood pressure 147/68, respiratory rate 20, pulse is 90, temperature 98.2, oxygen saturation is 95% on room air. HEENT: Normocephalic, atraumatic, otherwise unremarkable. NECK: Supple. Negative for carotid bruit, lymphadenopathy, or thyromegaly. LUNGS: Clear to A and P. CARDIOVASCULAR: Regular rate and rhythm, normal S1, S2. ABDOMEN: Soft. Bowel sounds positive. EXTREMITIES: Negative for cyanosis, clubbing, or pitting edema. NEUROLOGICAL: Mental Status: The patient is alert and oriented x 3. Speech is fluent. There is no language dysfunction. Cranial nerves, mild left facial asymmetry, otherwise unremarkable. Motor Examination: No focal muscle bulk was seen. The tone is normal. The strength is 4/5 throughout. The patient has very mild resting and postural and kinetic tremors of the hands. Sensory examination revealed normal pinprick, light touch, vibratory and position senses. Deep tendon reflexes are symmetric and active without pathology responses. Gait not tested at this time. IMPRESSION: 1. Parkinsonian tremor-subsided with carbidopa/levodopa. 2. Possible senile tremor. 3. Multiple medical problems include hypertension, hyperlipidemia, depression, anxiety, bipolar disorder, and hypothyroidism. RECOMMENDATIONS: 1. Continue with current management for tremor including primidone and carbidopa/levodopa: 2. Continue with current management initiated by Dr. Osei. M Chris LARIOS MD DR: FELI/cristhian JOB#: [id number] / [id number]
== END 2017-09-25 18:21 | disposition short-term general hospital (02) | DRG 394 ==
LOC: ER 08:55 → 1 SOUTH 10:20
PROVIDERS: ADMIT Family Medicine; ATTEND Family Medicine
DX: K66.8 Other specified disorders of peritoneum (principal); E87.1 Hypo-osmolality and hyponatremia; G20 Parkinson's disease; J44.9 Chronic obstructive pulmonary disease, unspecified; K52.9 Noninfective gastroenteritis and colitis, unspecified; E03.9 Hypothyroidism, unspecified; E78.5 Hyperlipidemia, unspecified; E86.0 Dehydration; F17.200 Nicotine dependence, unspecified, uncomplicated; F31.9 Bipolar disorder, unspecified; F41.9 Anxiety disorder, unspecified; G25.81 Restless legs syndrome; I10 Essential (primary) hypertension; G89.29 Other chronic pain; G47.00 Insomnia, unspecified; M19.90 Unspecified osteoarthritis, unspecified site; M81.0 Age-related osteoporosis without current pathological fracture; R33.9 Retention of urine, unspecified; Z82.0 Family history of epilepsy and other diseases of the nervous system; Z86.73 Personal history of transient ischemic attack (TIA), and cerebral infarction without residual deficits; Z88.2 Allergy status to sulfonamides; Z88.7 Allergy status to serum and vaccine; Z88.8 Allergy status to other drugs, medicaments and biological substances; Z91.040 Latex allergy status; Z82.49 Family history of ischemic heart disease and other diseases of the circulatory system
CPT/HCPCS: 36415; 74020; 74176; 80048; 80053; 81001; 82550; 83605; 83735; 85025; 85027; 90686; J1650; J3490; P9612; 92610; 99285-25; J7030

== ENCOUNTER 2017-11-06 02:07 | Emergency (ER) | payer MEDICARE, OTHER ==
[~2017-11-06] VITALS: Ht 160 cm; Wt 55.3 kg
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
[2017-11-06] MEDS ORDERED: IV NORMAL SALINE 1,000ML 1,000 ML IV SCH (02:30)
[2017-11-06] MEDS ORDERED: IPRATRPIUM/ALBUTEROL 0.5/2.5MG 3 ML NEBU. NEB ONE (02:30)
[2017-11-06 02:46] LABS: BGAS PH 7.3 (7.35-7.45)
[2017-11-06 03:03] LABS: BASO # 0.1 x10^3/uL (0.0-0.2); BASO % 1 % (0-3); EOS # 0.1 x10^3/uL (0.0-0.7); EOS % 0 % (0-3); HEMATOCRIT 37.9 % (36.0-47.0); HEMOGLOBIN 12.9 g/dL (12.0-15.5); LYMPH # 1.7 x10^3/uL (1.0-4.8); LYMPH % 12 % (24-48); MEAN CORPUSCULAR HEMOGLOBIN 30 pg (25-35); MEAN CORPUSCULAR HGB CONC 34 g/dL (31-37); MEAN CORPUSCULAR VOLUME 89 fL (79-100); MONO # 0.6 x10^3/uL (0.0-1.1); MONO % 4 % (0-9); NEUT # 11.6 x10^3uL (1.8-7.7); NEUT % 83 % (31-73); PLATELET COUNT 439 x10^3/uL (140-400); RED BLOOD COUNT 4.27 x10^6/uL (3.50-5.40); RED CELL DISTRIBUTION WIDTH 15.1 % (11.5-14.5)
--- NOTE | 2017-11-06 03:08 | EKG ---
[address] [address] Test Date: 2017-11-06 Test Time: 03:06:01 Pat Name: FREDERIC DEXTER Department: Room: Gender: F Quality Assurance Advisor: ANGELIC : [id number] Requested By: LUIS MANUEL ABERNATHY Order Number: [id number] Reading MD: Gilmar Maldonado MD Measurements Intervals Stella Rate: 91 P: 68 HI: 158 QRS: 62 QRSD: 84 T: 69 QT: 344 QTc: 430 Interpretive Statements SINUS RHYTHM Electronically Signed On 11-06-2017 9:50:43 STAFF DEVELOPMENT COORDINATOR by Gilmar Maldonado MD
[2017-11-06] MEDS ORDERED: AZITHROMYCIN 250 MG TABLET. PO ONE (03:15)
[2017-11-06] MEDS ORDERED: cefTRIAXone IM 1 GM VIAL IM ONE (03:15)
[2017-11-06 03:23] LABS: AMPHETAMINE/METHAMPHETAMINE NEG (NEG); BARBITURATES POS (NEG); BENZODIAZEPINES POS (NEG); CANNABINOIDS NEG (NEG); COCAINE NEG (NEG); METHADONE NEG (NEG); OPIATES NEG (NEG); PHENCYCLIDINE NEG (NEG)
[2017-11-06 03:30] LABS: BACTERIA,URINE MANY /HPF (0-FEW); BILIRUBIN,URINE NEG (NEG); CLARITY,URINE HAZY; COLOR,URINE YELLOW; GLUCOSE,URINE NEG (NEG); NITRITE,URINE NEG (NEG); RBC,URINE 0 /HPF (0-2); SQUAMOUS EPITHELIAL CELL,UR FEW /LPF; UROBILINOGEN,URINE 0.2 mg/dL (0.2 mg/dL); WBC,URINE >40 /HPF (0-4)
[2017-11-06] MEDS ORDERED: LIDOCAINE 2%/EPI 1:100,000 20 ML VIAL. IJ ONE (03:30)
[2017-11-06 03:37] LABS: ALBUMIN 3.1 g/dL (3.4-5.0); CALCIUM 8.9 mg/dL (8.5-10.1); CREATININE 1.5 mg/dL (0.6-1.0); DIRECT BILIRUBIN 0.1 mg/dL (0.0-0.2); GFR 34.7; MAGNESIUM 1.8 mg/dL (1.8-2.4); POTASSIUM 4.8 mmol/L (3.5-5.1); TOTAL BILIRUBIN 0.2 mg/dL (0.2-1.0); TOTAL PROTEIN 6.6 g/dL (6.4-8.2)
[2017-11-06] MEDS ORDERED: ENOXAPARIN ** NOTE DOSE ** SYRINGE SQ ONE (04:00)
[2017-11-06] MEDS ORDERED: IV NORMAL SALINE 1,000ML 1,000 ML IV ONE (04:00)
[2017-11-06] MEDS ORDERED: TETRACAINE 0.5% OPHTH SOLUTION 4ML BOTTLE. ONE (04:02)
[2017-11-06] MEDS ORDERED: ERYTHROMYCIN 0.5% OPHTH OINTMENT 1GM TUBE. ONE (04:02)
[2017-11-06] MEDS ORDERED: cefTRIAXone IV Push 1 GM VIAL. IVP ONE (04:02)
[2017-11-06] MEDS ORDERED: TETRACAINE 0.5% OPHTH SOLUTION 4ML BOTTLE. OU ONE (04:15)
[2017-11-06] MEDS ORDERED: methylPREDNISolone SOD SUCC PF 125 MG/2 ML VIAL. ONE (04:35)
[2017-11-06] MEDS ORDERED: diphenhydrAMINE 50 MG/ML VIAL ONE (04:35)
[2017-11-06] MEDS ORDERED: methylPREDNISolone SOD SUCC PF 125 MG/2 ML VIAL. IV ONE ×2 (04:45→05:00)
[2017-11-06] MEDS ORDERED: IOHEXOL 300 MG/ML 75 ML VIAL. ONE (04:50)
[2017-11-06] MEDS ORDERED: ERYTHROMYCIN 0.5% OPHTH OINTMENT 1GM TUBE. OS ONE (05:00)
[2017-11-06] MEDS ORDERED: diphenhydrAMINE 50 MG/ML VIAL IVP ONE ×2 (05:15)
[2017-11-06] MEDS ORDERED: IOHEXOL 300 MG/ML 75 ML VIAL. IV ONE (05:30)
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
[2017-11-06 07:13] VITALS: BP 115/62
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
--- NOTE | 2017-11-06 07:23 | RAD ---
Portable chest, 11/06/2017, 6:55 AM: History: Post chest tube placement Comparison is made to a study from earlier the same day. The heart size is normal. A right chest tube has been placed with partial evacuation of the right pleural effusion. There is mild to moderate persistent right basilar atelectasis/infiltrate. There are linear lucencies projected over the right chest, probably predominantly due to skin folds. A small residual pneumothorax cannot be excluded. Multiple right lower rib fractures are present, as well demonstrated on the current CT study. There is now mild chest wall emphysema laterally on the right. There is only minimal linear atelectasis in the left base. IMPRESSION: 1. Partial evacuation of the right pleural effusion status post right chest tube placement, with mild to moderate residual right basilar atelectasis/infiltrate. 2. No large pneumothorax is evident. 3. Mild right lateral chest wall emphysema. 4. Multiple right lower rib fractures.
[2017-11-06 09:17] LABS: BF CLARITY TURBID; BF COLOR RED; BF SOURCE PLEURAL
[2017-11-06 09:18] LABS: BF RBC COUNT 277328; BF WBC COUNT 3182
[2017-11-06 09:56] LABS: BF PMN % 2 %
[2017-11-06 09:57] LABS: BF MON % 97 %; BF OTHER % 1 %
--- NOTE | 2017-11-07 16:32 | PATHOLOGY ---
CYTOPATHOLOGY REPORT CLINICAL HISTORY: Not provided SPECIMEN(S) RECEIVED: A.Pleural fluid FINAL DIAGNOSIS: Pleural fluid, ThinPrep and cell block: - No malignant cells identified. - Reactive mesothelial cells identified within a background of chronic inflammatory cells and red blood cells. (JPM:rledson; 11/07/2017) PATHOLOGIST: Brody Brown M.D. REPORT ELECTRONICALLY SIGNED BY: Brody Brown M.D. DATE/TIME: 11/07/2017 16:31 GROSS PATHOLOGY: A. Pleural fluid: The specimen is submitted unfixed, labeled "Frederic Faulkner". Received by the Cytology Department is three mL of cloudy red fluid. One ThinPrep slide and a formalin fixed cell block were prepared. (mm 11.06.2017) RN DERMATOLOGY(S): SUASNNA Medrano([facility]) INITIAL CPT CODE(S): A; 65438, 12535 Professional services performed [place] [facility] [place] [address] Technical services performed by [facility] at [address] [place] [address], [address], [place] [address]. PATIENT: FREDERIC FAULKNER /AGE: 9 1950 (Age: 67) SEX: F PATIENT #: [id number] ALT CASE #: SPECIMEN COLLECTION DATE: 11/06/2017 SPECIMEN RECEIVED DATE: 11/06/[address] [facility] [address] [place] [address], [address] [place] [address] PHONE: [phone] DIRECTOR: Beau Collins M.D. * * * END OF REPORT * * *
== END 2017-11-06 07:30 | disposition short-term general hospital (02) ==
LOC: ER 02:07
DX: T59.811A Toxic effect of smoke, accidental (unintentional), initial encounter (principal); J44.9 Chronic obstructive pulmonary disease, unspecified; J70.5 Respiratory conditions due to smoke inhalation; J96.01 Acute respiratory failure with hypoxia; G20 Parkinson's disease; I10 Essential (primary) hypertension; L97.319 Non-pressure chronic ulcer of right ankle with unspecified severity; J90 Pleural effusion, not elsewhere classified; T20.26XA Burn of second degree of forehead and cheek, initial encounter; T24.222A Burn of second degree of left knee, initial encounter; T24.221A Burn of second degree of right knee, initial encounter; D72.829 Elevated white blood cell count, unspecified; N28.9 Disorder of kidney and ureter, unspecified; R79.1 Abnormal coagulation profile; N39.0 Urinary tract infection, site not specified; E46 Unspecified protein-calorie malnutrition; R74.0 Nonspecific elevation of levels of transaminase and lactic acid dehydrogenase [LDH]; M62.81 Muscle weakness (generalized); S22.41XA Multiple fractures of ribs, right side, initial encounter for closed fracture; J93.9 Pneumothorax, unspecified; E78.00 Pure hypercholesterolemia, unspecified; F17.210 Nicotine dependence, cigarettes, uncomplicated; F32.9 Major depressive disorder, single episode, unspecified; Z86.73 Personal history of transient ischemic attack (TIA), and cerebral infarction without residual deficits; Z91.81 History of falling; Z88.7 Allergy status to serum and vaccine; Z88.8 Allergy status to other drugs, medicaments and biological substances; Z91.041 Radiographic dye allergy status; Z91.040 Latex allergy status; X58.XXXA Exposure to other specified factors, initial encounter; Y93.89 Activity, other specified; Y99.8 Other external cause status; Y92.89 Other specified places as the place of occurrence of the external cause
CPT/HCPCS: 32551; 36415; 36600; 51701; 71045; 71275; 80048; 80076; 80307; 81001; 82375; 82553; 82803; 82945; 83605; 83615; 83690; 83735; 83880; 83986; 84157; 84443; 84484; 85025; 85379; 85610; 85730; 87040; 87071; 87075; 87086; 87102; 87116; 88112; 88305; 89050; 93005; 94640; 96361; 96372; 96374; 96375; 96376; 99285; J0456; J0696; J1200; J1650; J2930; J3010; J7620; Q9967; 87186; G0479; J7030